=== PATIENT | male | born 1960 | race Caucasian/White ===

== ENCOUNTER 2017-01-01 22:49 | Emergency (ER) | payer BC ==
[~2017-01-01] VITALS: Ht 170.2 cm; Wt 101.4 kg
[~2017-01-01 22:49] MED LIST: ALPR-411 PO; ASPI81TA21 PO; ATOR-26 PO; CYCL10TA6 PO; Cranberry PO; FINA5TAB4 PO; FISHOIL PO; Flax Seed Oil PO; KPP/750 PO; LSN/10125 PO; MISC1CAP60 PO; MULTTAB58 PO
[2017-01-01 22:52] VITALS: TEMP 36.9; Ht 170.2 cm; Wt 101.4 kg
--- NOTE | 2017-01-01 23:16 | EMERGENCY ROOM VISIT NOTE ---
History Report prepared by Kathrin: Devaughn Pagan Under the Supervision of: Dr. Karin Awad D.O. First contact with patient: 22:56 Chief Complaint: CONSTIPATION Stated Complaint: EXTREME CONSTIPATION History of Present Illness The patient is a 56 year old male who presents to the Emergency Room with complaints of persistent constipation that the patient first noticed this morning, several hours prior to arrival. The patient states that when he woke up this morning he was not able to urinate as he normally would. He was not able to successfully void, so he sat down to attempt to produce a bowel movement. He cannot remember the last normal bowel movement he had, but did note moving 4-5 "pellets" on Monday, three days ago. Trying to have a bowel movement caused increased his abdominal pain. He is currently experiencing constant abdominal pain that is worsened with sitting down, and improved by laying on his side. The patient did try MiraLAX and a Enema earlier today without relief. He denies having any history of constipation, and notes that he normally has a bowel movement every other day. The patient claims that he has not been able to urinate successfully throughout the day and can feel a pressure over his bladder. He has been diagnosed with diverticulitis in the past and had a colonoscopy performed. No recent change in activity or diet. No change in medications. 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 A total of 10 systems reviewed and were otherwise negative. Past Medical & Surgical Medical Problems: (1) Diverticulosis (2) Hemorrhoid (3) Hypertension (4) Seizure disorder Surgical Problems: (1) History of hip surgery Family History No significant family history Social History Smoking Status: Never Smoker Alcohol Use: none Marital Status: Housing Status: lives with family Occupation Status: employed Current/Historical Medications Scheduled Alprazolam (Xanax), 0.5-1 TABS PO Q6HR PRN Aspirin Enteric Coated (Ecotrin Or Generic), 162 MG PO DAILY Atorvastatin (Lipitor), 80 MG PO DAILY Cranberry (Vaccinium Macrocarp (Cranberry), 1 CAP PO DAILY Cyclobenzaprine Hcl (Flexeril), 10 MG PO HS PRN Doxazosin Mesylate (Doxazosin Mesylate), 2 MG PO BID Finasteride (Proscar), 5 MG PO DAILY Fish Oil ([place]-3), 1 CAP PO DAILYBD Flaxseed (Linseed) (Flaxseed Oil), 1 CAP PO DAILY Hctz/Lisinopril (Lisinopril/Hctz 10/12.5 Mg), 1 TABLET PO DAILY Levetiracetam (Keppra), 1,500 MG PO BID Misc Natural Products ([place]), 1 CAP PO DAILY Multiple Vitamin (Multivitamin), 1 TABLET PO 2XWK Omeprazole (Prilosec), 20 MG PO DAILY Allergies Coded Allergies: No Known Allergies (Verified , 01/01/17) Physical Exam Vital Signs Date Time Temp Pulse Resp B/P (MAP) Pulse Ox O2 Delivery O2 Flow Rate FiO2 01/02/17 03:02 81 18 101/68 93 01/02/17 01:01 104/69 01/02/17 00:57 82 17 95 01/02/17 00:42 92 95 01/02/17 00:31 121/86 01/02/17 00:27 94 96 01/02/17 00:12 97 98 01/02/17 00:01 130/86 01/01/17 23:57 97 18 96 01/01/17 23:43 138/93 01/01/17 23:42 101 95 Room Air 01/01/17 23:22 110/68 01/01/17 22:52 36.9 108 18 121/77 95 Room Air Physical Exam GENERAL: alert, well appearing, well nourished, no distress, non-toxic LUNGS: Clear to auscultation. Normal chest wall mechanics HEART: no murmurs, S1 normal and S2 normal ABDOMEN: abdomen soft, with minimal diffuse lower abdominal tenderness to palpation, normo-active bowel sounds, no masses, no rebound or guarding. BACK: Back is symmetrical on inspection and there is no deformity, no midline tenderness, no CVA tenderness. SKIN: no rashes and no bruising UPPER EXTREMITIES: upper extremities are grossly normal. LOWER EXTREMITIES: No pitting edema. NEURO EXAM: Normal sensorium Medical Decision & Procedures ER Provider Diagnostic Interpretation: Radiology results have been interpreted by me: CHEST X-RAY: X-ray reveals mild cardiomegaly, no effusion, no wide mediastinum, no infiltrate. ABDOMEN X-RAY: No definite SBO, no free air, scattered stool present throughout. Laboratory Results Test 01/02/17 00:25 Urine Color YELLOW Urine Appearance CLEAR (CLEAR) Urine pH 5.5 (4.5-7.5) Urine Specific [place] 1.010 (1.000-1.030) Urine Protein NEG (NEG) Urine Glucose (UA) NEG (NEG) Urine Ketones TRACE (NEG) Urine Occult Blood NEG (NEG) Urine Nitrite NEG (NEG) Urine Bilirubin NEG (NEG) Urine Urobilinogen NEG (NEG) Urine Leukocyte Esterase NEG (NEG) Laboratory results per my review. Medications Administered Medications (Trade) Dose Ordered Sig/Hua Route Start Time Stop Time Status Last Admin Dose Admin Dicyclomine HCl (Bentyl Tab) 20 mg NOW STAT PO 01/01/17 23:47 01/01/17 23:50 DC 01/02/17 00:06 20 MG Ketorolac Tromethamine (Toradol Inj) 60 mg NOW STAT IM 01/01/17 23:47 01/01/17 23:50 DC 01/02/17 00:08 60 MG Miscellaneous Medication (Milk And Molasses Enema) 1 ea NOW STAT UT 01/01/17 23:47 01/01/17 23:50 DC 01/01/17 00:55 1 EA Hydrocortisone (Proctozone Hc 2.5% Crm) 1 appln NOW ONCE EXT 01/02/17 01:15 01/02/17 01:16 DC 01/02/17 02:27 1 APPLN Hydrocortisone Acetate (Anusol Hc Supp) 25 mg NOW STAT UT 01/02/17 01:08 01/02/17 01:10 DC 01/02/17 02:27 25 MG Magnesium Citrate (Citrate Of Magnesia Soln) 296 ml NOW STAT PO 01/02/17 01:54 01/02/17 01:55 DC 01/02/17 03:02 296 ML ED Course 2302: The patient was evaluated in room B9. A complete history and physical exam was performed. 2347: Ordered Molasses, Toradol 60 mg IM, Dicyclomine HCl 20 mg PO. 0002: I reevaluated the patient at this time. He was resting in bed. 0026: Bladder scan performed at pt request. 700ml. Agudelo placed. 1100 ml drained. 0108: Ordered Hydrocortisone Acetate 25 mg UT. 0115: Ordered Hydrocortisone 1 application EXT. 0143: I reevaluated the patient at this time. He feels much better, the abdominal pain has resolved. There is no more tenderness to palpation. I discussed options for his diet moving forwards. The patient is in agreement with the treatment plan. He will be discharged home. 0154: Ordered Magnesium Citrate 296 mL PO. Medical Decision Differential diagnosis: Etiologies such as functional constipation, impaction, obstruction, volvulus, metabolic abnormality, infection, neurologic, as well as others were entertained. With additional discussion, patient admitted to altered diet this week around the holidays. He feels this could be contributing to his constipation. Patient 's pain improved following successful enema. Patient was found to have urinary retention and Agudelo catheter placed and patient felt improved not also. On repeat exam patient's abdomen was soft and nontender and less distended. I do not suspect perforation, GI bleed, mesenteric ischemia, colitis, bowel obstruction, kidney stone, no evidence of UTI without pyelonephritis, doubt vascular etiology, doubt bacteremia/sepsis. Likely constipation and urinary retention with reasons for the patient's pain and discomfort. From recent straining from constipation patient does have hemorrhoids. Discussed with him close follow-up with family doctor, waist apparent constipation, follow-up with urology regarding the urinary retention which is likely due to patient's chronic prostate issues. Patient already on Proscar, and has previously had prostate biopsy. Patient had a last several months notice difficulty emptying his bladder completely. Medication Reconcilliation Current Medication List: was personally reviewed by me Blood Pressure Screening Patient's blood pressure: Normal blood pressure Impression Primary Impression: Constipation Additional Impressions: Urinary retention Hemorrhoid Scribe Attestation The scribe's documentation has been prepared under my direction and personally reviewed by me in its entirety. I confirm that the note above accurately reflects all work, treatment, procedures, and medical decision making performed by me. Departure Information Dispostion Home / Self-Care Referrals Charmaine Matt M.D. (PCP) Patient Instructions My [facility] Additional Instructions Please take stool softeners daily and drink more water. Please make sure you are eating foods rich in fiber daily. Please drink half of the bottle of mag citrate. If you do not have any results in 4-5 hours, please drink the other half. Please follow-up with your family doctor regarding the constipation and have them recheck your hemorrhoids. Please call urology and follow-up regarding your difficulty urinating. If you have any recurrent abdominal pain, develop fevers, vomiting, notice blood in the catheter, are unable to have a bowel movement, or you have any other new or concerning symptoms, please return to the emergency room. Problem Qualifiers Primary Impression: Constipation Constipation type: unspecified constipation type Qualified Codes: K59.00 - Constipation, unspecified Additional Impressions: Hemorrhoid Hemorrhoid type: unspecified Qualified Codes: K64.9 - Unspecified hemorrhoids
[2017-01-01] MEDS ORDERED: OMEG10007 PO (23:29)
[2017-01-01] MEDS ORDERED: CRD2 PO (23:30)
[2017-01-01] MEDS ORDERED: OMEP20CA9 PO (23:30)
[2017-01-01] MEDS ORDERED: CRAN1CAP6 PO (23:33)
[2017-01-01] MEDS ORDERED: FLAX12003 PO (23:33)
[2017-01-01] MEDS ORDERED: DICYCLOMINE HCL 20 MG TAB PO STA (23:47)
[2017-01-01] MEDS ORDERED: KETOROLAC TROMETHAMINE 60 MG/2 ML VIAL IM STA (23:47)
[2017-01-01] MEDS ORDERED: MILK AND MOLASSES ENEMA PR STA (23:47)
[2017-01-02] MEDS ORDERED: DICYCLOMINE HCL 10 MG CAP ONE (00:04)
[2017-01-02 00:44] LABS: URINE APPEARANCE CLEAR (CLEAR); URINE BILIRUBIN NEG (NEG); URINE COLOR YELLOW; URINE NITRITE NEG (NEG); URINE PH 5.5 (4.5-7.5); UROBILINOGEN NEG (NEG)
[2017-01-02 01:00] LABS: MANUAL MICROSCOPIC REQUIRED? NO; REVIEW REQ? NO
[2017-01-02] MEDS ORDERED: HYDROCORTISONE ACETATE 25 MG SUPP PR STA (01:08)
[2017-01-02] MEDS ORDERED: HYDROCORTISONE HC 2.5% CRM 30GM TUBE EXT ONE (01:15)
[2017-01-02] MEDS ORDERED: MAGNESIUM CITRATE 296 ML/BTL PO STA (01:54)
[2017-01-02 03:02] VITALS: BP 101/68; PULSE 81; O2SAT 93
--- NOTE | 2017-01-02 07:05 | DIAGNOSTIC IMAGING REPORT ---
PA CHEST WITH ABDOMINAL SERIES CLINICAL HISTORY: Constipation. Lower abdominal pain. FINDINGS: A PA chest radiograph is compared to study dated 03/11/2007. The heart is top normal for projection. The mediastinal contour is within normal limits. The lungs and pleural spaces are clear. No pneumothorax is seen. The bony thorax is grossly intact. Supine and erect abdominal radiographs are correlated with abdominal ultrasound dated 09/27/2007. The examination is degraded by large body habitus. There is a nonobstructed abdominal bowel gas pattern. Mild to moderate colonic fecal retention is observed. No evidence of intraperitoneal free air is seen. There are no abnormal abdominal calcifications. Phleboliths are noted in the pelvis. There is a left hip arthroplasty. The lumbosacral spine and bony pelvis appear intact. IMPRESSION: 1. No active disease in the chest. 2. Nonobstructed abdominal bowel gas pattern. Electronically signed by: Eulalio Gustafson M.D. 01/02/2017 7:04 AM Dictated Date/Time: 01/02/2017 7:02 AM
== END 2017-01-02 03:05 | disposition home or self-care (01) ==
LOC: C.EDB 22:50
DX: K59.00 Constipation, unspecified (principal); R33.9 Retention of urine, unspecified; K64.9 Unspecified hemorrhoids; G40.909 Epilepsy, unspecified, not intractable, without status epilepticus; Z98.890 Other specified postprocedural states; Z79.82 Long term (current) use of aspirin; Z79.899 Other long term (current) drug therapy

== ENCOUNTER → 2017-03-14 | Outpatient (CLI) | payer OTHER ==
[~2017-03-14] MED LIST changes: +CRAN1CAP6 PO; +CRD2 PO; -Cranberry PO; -FISHOIL PO; +FLAX12003 PO; -Flax Seed Oil PO; +OMEG10007 PO; +OMEP20CA9 PO
--- NOTE | 2017-03-14 14:34 | DIAGNOSTIC IMAGING REPORT ---
EXAMINATION: RENAL ULTRASOUND CLINICAL HISTORY: R31.0 Gross [id number] COMPARISON STUDY: None FINDINGS: The right kidney measures 10.0 cm. The left kidney measures 10.3 cm. There is no evidence of hydronephrosis. There is an 8 mm upper pole right renal cyst No bladder abnormalities are visualized. Bilateral ureteral jets were visualized. The prostate is enlarged, measuring 41 mm transversely. IMPRESSION : 1. 8 mm right renal cortical cyst 2. No solid renal masses identified 3. Enlarged prostate Electronically signed by: Suresh Quevedo M.D. 03/14/2017 2:33 PM Dictated Date/Time: 03/14/2017 2:31 PM
== END | disposition home or self-care (01) ==
LOC: C.ULTR 13:36
PROVIDERS: ATTEND Urology
DX: R31.0 Gross hematuria (principal); N28.1 Cyst of kidney, acquired; N40.0 Benign prostatic hyperplasia without lower urinary tract symptoms

== ENCOUNTER 2020-02-26 18:12 | Inpatient (IN) ==
[2020-02-26] MEDS ORDERED: PANTOprazole 80 MG in DEXTROSE 5% 100 ML IV ONE (18:29)
[2020-02-26] MEDS ORDERED: SODIUM CHLORIDE 0.9% 250 ML IV PRN (18:29)
[2020-02-26] MEDS ORDERED: PANTOprazole 40 MG in DEXTROSE 5% 100 ML IV SCH (18:30)
[2020-02-26] MEDS ORDERED: SODIUM CHLORIDE 0.9% 1000ML 1,000 ML IV SCH (18:30)
[2020-02-26 18:56] LABS: Basophils # (auto) 0.04 K/uL (0-0.2); Basophils % (auto) 0.6 %; Eosinophils # (auto) 0.08 K/uL (0-0.5); Eosinophils % (auto) 1.2 %; Hematocrit (blood only) 35.9 % (42-52); Hemoglobin 12.3 g/dL (14.0-18.0); Immature Granulocytes # (auto) 0.06 K/uL (0.00-0.02); Immature Granulocytes % (auto) 0.9 %; Lymphocytes # (auto) 1.79 K/uL (1.2-3.4); Lymphocytes % (auto) 27.6 %; Mean Corpuscular Hemoglobin 32.6 pg (25-34); Mean Corpuscular Hgb Conc 34.3 g/dL (32-36); Mean Corpuscular Volume 95.2 fL (80-100); Monocytes # (auto) 0.44 K/uL (0.11-0.59); Monocytes % (auto) 6.8 %; Neutrophils # (auto) 4.08 K/uL (1.4-6.5); Neutrophils % (auto) 62.9 %; Platelet Count 122 K/uL (130-400); RDW Coefficient of Variation 13.1 % (11.5-14.5); RDW Standard Deviation 45.3 fL (36.4-46.3); Red Blood Count 3.77 M/uL (4.7-6.1); White Blood Count 6.49 K/uL (4.8-10.8)
[2020-02-26 19:18] LABS: Albumin Level 3.9 gm/dl (3.4-5.0); BUN Creatinine Ratio 17.4 (10-20); Blood Urea Nitrogen 19 mg/dl (7-18); Carbon Dioxide 28 mmol/L (21-32); Chloride 104 mmol/L (98-107); Creatinine Clr Calc Pharmacy 79.9 ml/min; Est GFR (African American) 84.1; Est GFR (Non-African American) 72.6; Glucose 93 mg/dl (70-99); Sodium 137 mmol/L (136-145)
[2020-02-26 19:24] LABS: Alanine Aminotransferase 39 U/L (12-78); Albumin Globulin Ratio 1.1 (0.9-2); Alkaline Phosphatase 63 U/L (45-117); Bilirubin,Total 0.4 mg/dl (0.2-1); Globulin 3.5 gm/dl (2.5-4.0); Total Protein 7.4 gm/dl (6.4-8.2); Troponin I < 0.015 ng/ml (0-0.045)
[2020-02-26 20:19] LABS: Potassium 3.9 mmol/L (3.5-5.1)
[2020-02-26 20:21] LABS: Partial Thromboplastin Ratio 0.8; Partial Thromboplastin Time 22.6 Seconds (21.0-31.0); Prothrombin Time 10.6 Seconds (9.0-12.0)
[2020-02-26] MEDS ORDERED: MULTI-VITAMIN INFUSION 10 ML, THIAMINE HCL 100 MG, FOLIC ACID 1 MG in SODIUM CHLORIDE 0... IV ONE (22:30)
[2020-02-26] MEDS ORDERED: METOPROLOL TARTRATE 1 MG/ML VIAL IV PRN (22:30)
[2020-02-26] MEDS ORDERED: NITROGLYCERIN SL 0.4 MG/TAB TAB SL PRN (22:30)
[2020-02-26] MEDS ORDERED: ONDANSETRON INJ 2 MG/ML 2 ML VIAL IV PRN (22:30)
--- NOTE | 2020-02-26 22:44 | Emergency Department Note ---
Impression & Plan UGIB (upper gastrointestinal bleed) ED Provider Note NAME: KATY NAYAK AGE: 59 SEX: M ARRIVES VIA: Walk-In INFORMANT: Patient, ED PROVIDER(S): Julita Coello MD CHIEF COMPLAINT: Black stools, dizzy PLAN: Disposition: Inpatient Condition: Fair Referral: Hospitalist MEDICAL DECISION MAKING: This patient was evaluated and appeared to be in no distress. IV access was obtained and laboratory work was drawn. An order for cardiac monitoring was placed and the patient is noted to be in a normal sinus rhythm at 96 bpm. Patient's hemoglobin is 12.3 which is down from 15 as an outpatient ([facility]) 1 year ago. Rectal exam reveals guaiac positive melanotic stool. Patient was hydrated with normal saline solution. He was typed and crossed for 2 units PRBCs. He was started on a Protonix drip. I did explain my findings to the patient. He is agreeable with the plan for admission and further management. Hospitalist service was consulted. Triage Nursing notes reviewed. Prior medical records reviewed outpatient [facility] record Vital Signs: reviewed and remarkable for mild tachycardia Differential diagnosis: Diverticulosis, AVM, coagulopathy, colitis, inflammatory bowel disease, malignancy, Romelia-Atkinson tear, esophagitis, peptic ulcer disease, variceal bleed, gastritis, epistaxis, fissure, hemorrhoids, as well as other pathologies. ER treatment provided: IV Protonix IV fluids Diagnostics interpreted by me: ECG: Normal sinus rhythm at 97 bpm left axis deviation, anterior lateral T wave inversions, QTC of 449. No PVC, no PAC. Nonspecific ST abnormality in the anterior lateral leads Cardiac Monitoring: An order for cardiac monitoring was placed and the patient is noted to be in a normal sinus rhythm 96 bpm Laboratory studies: Hemoglobin of 12.3, down from 15 as an outpatient 1 year ago Consultation(s): Hospitalist HPI: 59/M arrives for evaluation of dark stools and dizziness. Patient was seen in the outpatient office by the primary care provider and sent in for further evaluation. Patient states he does take 2 baby aspirin a day and last week was placed on a course of prednisone for a presumed peripheral nerve issue. He also admits to drinking several alcoholic beverages daily. Approximately 5 to 7 days ago he noticed dark stools and some nausea although he denies any overt abdominal pain. Patient denies any vomiting, fevers, chills, cough. He states he did have a rectal exam that was positive for blood in the office prior to arrival. ROS: See above HPI for pertinent positives & negatives. A total of 10 systems reviewed and were otherwise negative. PAST MEDICAL HISTORY:See Below PAST SURGICAL HISTORY:See Below FAMILY HISTORY:See Below SOCIAL HISTORY:See Below HOME MEDICATIONS:See Below ALLERGIES:See Below PHYSICAL EXAMINATION: Vital signs reviewed. General: Generally well-appearing 59 yo male, in no significant distress. HEENT: Pale conjunctiva, PERRLA, neck supple. Moist mucous membranes Cardiovascular: Regular rate and rhythm, no extra sounds. Pulmonary: Clear to auscultation bilaterally, normal work of breathing. Abdomen: Soft, nontender, nondistended, positive bowel sounds. Musculoskeletal: Atraumatic, no peripheral edema. Neurologic: Patient awake alert and oriented x 3 Rectal: Normal external mucosa, guaiac positive melanotic stool. Skin: Warm, dry, no rash Julita Coello MD Past Med/Surg History Medical History (Updated 02/27/20 @ 22:45 by Julita Coello MD) Acute blood loss anemia Diverticulosis HLD (hyperlipidemia) Hypertension Seizure disorder Social History Smoking Status: Former smoker Second Hand Exposure: No; Do You Dip or Chew Tobacco: No (not currently); Tobacco Cessation Education Requested by Patient: No Hx Alcohol Use: Yes Alcohol type: beer and hard liquor Hx Substance Use: No Preferred Language: Azeri Communication Ability: Effective Park Maintainer Required: No Beliefs That Will Affect Care: None Current Living Situation: Family Other Information That Helps Us Care for You: No Feels Safe at Home: Yes Safety Concerns: Feels Safe At This Time Assistive Devices: None Allergies Allergies Allergy/AdvReac Type Severity Reaction Status Date / Time No Known Allergies Allergy Unknown Verified 02/26/20 21:41 Home Meds Home Medications Medication Instructions Recorded Confirmed alprazolam 0.5 - 1 mg PO Q6H PRN 02/26/20 02/26/20 aspirin [Aspir-Low] 162 mg PO DAILY 02/26/20 02/26/20 atorvastatin 80 mg PO QPM 02/26/20 02/26/20 cranberry extract 0 mg PO DAILY 02/26/20 02/26/20 cyclobenzaprine 10 mg PO HS PRN 02/26/20 02/26/20 finasteride 5 mg PO DAILY 02/26/20 02/26/20 flaxseed oil 0 mg PO DAILY 02/26/20 02/26/20 levetiracetam 1,500 mg PO BID 02/26/20 02/26/20 lisinopril-hydrochlorothiazide 1 tab PO DAILY 02/26/20 02/26/20 lycopene 10 mg PO DAILY 02/26/20 02/26/20 omega-3 fatty acids [Fish Oil] 1,000 mg PO DAILY 02/26/20 02/26/20 omeprazole 20 mg PO DAILY 02/26/20 02/26/20 saw palmetto 0 mg PO DAILY 02/26/20 02/26/20 sildenafil 100 mg PO DAILY PRN 02/26/20 02/26/20 Results & Data (ED) Vital Signs Vital Signs - 24 hr 02/26/20 20:30 02/26/20 21:00 Pulse Rate 99 H 101 H Pulse Rate from SpO2 Sensor 100 H 102 H Respiratory Rate 18 18 Blood Pressure 116/81 136/92 Blood Pressure Mean 92 106 Pulse Oximetry 96 98 Oxygen Delivery Method Room Air Room Air Laboratory Data Attestation: I reviewed the patient's lab results. Result diagrams: 02/27/20 17:08 02/27/20 05:27 Lab Results 02/26/20 02/26/20 02/26/20 Range/Units 18:40 18:40 18:40 WBC 6.49 (4.8-10.8) K/uL RBC 3.77 L (4.7-6.1) M/uL Hgb 12.3 L (14.0-18.0) g/dL Hct 35.9 L (42-52) % MCV 95.2 (80-100) fL MCH 32.6 (25-34) pg MCHC 34.3 (32-36) g/dL RDW Std Deviation 45.3 (36.4-46.3) fL RDW Coeff of Fanta 13.1 (11.5-14.5) % Plt Count 122 L (130-400) K/uL MPV 11.0 H (7.4-10.4) fL Immature Gran % (Auto) 0.9 % Neut % (Auto) 62.9 % Lymph % (Auto) 27.6 % [place] % (Auto) 6.8 % Eos % (Auto) 1.2 % Baso % (Auto) 0.6 % Neut # (Auto) 4.08 (1.4-6.5) K/uL Lymph # (Auto) 1.79 (1.2-3.4) K/uL [place] # (Auto) 0.44 (0.11-0.59) K/uL Eos # (Auto) 0.08 (0-0.5) K/uL Baso # (Auto) 0.04 (0-0.2) K/uL Immature Gran # (Auto) 0.06 H (0.00-0.02) K/uL PT INR APTT PTT Ratio Sodium 137 (136-145) mmol/L Potassium (3.5-5.1) mmol/L Chloride 104 (98-107) mmol/L Carbon Dioxide 28 (21-32) mmol/L Anion Gap 5.0 (3-11) BUN 19 H (7-18) mg/dl Creatinine 1.10 (0.6-1.4) mg/dl Est Cr Clr Drug Dosing 79.9 ml/min Est GFR ( Amer) 84.1 Est GFR (Non-Af Amer) 72.6 BUN/Creatinine Ratio 17.4 (10-20) Glucose 93 (70-99) mg/dl Calcium 9.0 (8.5-10.1) mg/dl Total Bilirubin 0.4 (0.2-1) mg/dl AST (15-37) U/L ALT 39 (12-78) U/L Alkaline Phosphatase 63 (45-117) U/L Troponin I < 0.015 (0-0.045) ng/ml Total Protein 7.4 (6.4-8.2) gm/dl Albumin 3.9 (3.4-5.0) gm/dl Globulin 3.5 (2.5-4.0) gm/dl Albumin/Globulin Ratio 1.1 (0.9-2) Blood Type Cancelled Antibody Screen Cancelled Crossmatch See Detail 02/26/20 02/26/20 02/26/20 Range/Units 18:40 19:56 19:56 WBC (4.8-10.8) K/uL RBC (4.7-6.1) M/uL Hgb (14.0-18.0) g/dL Hct (42-52) % MCV (80-100) fL MCH (25-34) pg MCHC (32-36) g/dL RDW Std Deviation (36.4-46.3) fL RDW Coeff of Fanta (11.5-14.5) % Plt Count (130-400) K/uL MPV (7.4-10.4) fL Immature Gran % (Auto) % Neut % (Auto) % Lymph % (Auto) % [place] % (Auto) % Eos % (Auto) % Baso % (Auto) % Neut # (Auto) (1.4-6.5) K/uL Lymph # (Auto) (1.2-3.4) K/uL [place] # (Auto) (0.11-0.59) K/uL Eos # (Auto) (0-0.5) K/uL Baso # (Auto) (0-0.2) K/uL Immature Gran # (Auto) (0.00-0.02) K/uL PT Cancelled INR Cancelled APTT Cancelled PTT Ratio Cancelled Sodium (136-145) mmol/L Potassium 3.9 (3.5-5.1) mmol/L Chloride (98-107) mmol/L Carbon Dioxide (21-32) mmol/L Anion Gap (3-11) BUN (7-18) mg/dl Creatinine (0.6-1.4) mg/dl Est Cr Clr Drug Dosing ml/min Est GFR ( Amer) Est GFR (Non-Af Amer) BUN/Creatinine Ratio (10-20) Glucose (70-99) mg/dl Calcium (8.5-10.1) mg/dl Total Bilirubin (0.2-1) mg/dl AST 20 (15-37) U/L ALT (12-78) U/L Alkaline Phosphatase (45-117) U/L Troponin I (0-0.045) ng/ml Total Protein (6.4-8.2) gm/dl Albumin (3.4-5.0) gm/dl Globulin (2.5-4.0) gm/dl Albumin/Globulin Ratio (0.9-2) Blood Type A Positive Antibody Screen NEGATIVE Crossmatch 02/26/20 Range/Units 19:56 WBC (4.8-10.8) K/uL RBC (4.7-6.1) M/uL Hgb (14.0-18.0) g/dL Hct (42-52) % MCV (80-100) fL MCH (25-34) pg MCHC (32-36) g/dL RDW Std Deviation (36.4-46.3) fL RDW Coeff of Fanta (11.5-14.5) % Plt Count (130-400) K/uL MPV (7.4-10.4) fL Immature Gran % (Auto) % Neut % (Auto) % Lymph % (Auto) % [place] % (Auto) % Eos % (Auto) % Baso % (Auto) % Neut # (Auto) (1.4-6.5) K/uL Lymph # (Auto) (1.2-3.4) K/uL [place] # (Auto) (0.11-0.59) K/uL Eos # (Auto) (0-0.5) K/uL Baso # (Auto) (0-0.2) K/uL Immature Gran # (Auto) (0.00-0.02) K/uL PT 10.6 INR 1.0 APTT 22.6 PTT Ratio 0.8 Sodium (136-145) mmol/L Potassium (3.5-5.1) mmol/L Chloride (98-107) mmol/L Carbon Dioxide (21-32) mmol/L Anion Gap (3-11) BUN (7-18) mg/dl Creatinine (0.6-1.4) mg/dl Est Cr Clr Drug Dosing ml/min Est GFR ( Amer) Est GFR (Non-Af Amer) BUN/Creatinine Ratio (10-20) Glucose (70-99) mg/dl Calcium (8.5-10.1) mg/dl Total Bilirubin (0.2-1) mg/dl AST (15-37) U/L ALT (12-78) U/L Alkaline Phosphatase (45-117) U/L Troponin I (0-0.045) ng/ml Total Protein (6.4-8.2) gm/dl Albumin (3.4-5.0) gm/dl Globulin (2.5-4.0) gm/dl Albumin/Globulin Ratio (0.9-2) Blood Type Antibody Screen Crossmatch Administered Medications Atorvastatin Calcium (Atorvastatin 40 Mg Tab) 80 mg PO QPM A[facility] Stop: 03/28/20 20:59 Last Admin: 02/27/20 21:12 Dose: 80 mg Documented by: [id number] Finasteride (Finasteride 5 Mg Tab) 5 mg PO DAILY A[facility] Stop: 03/28/20 08:59 Last Admin: 02/27/20 08:15 Dose: 5 mg Documented by: [id number] Thiamine HCl 100 mg/ Syringe 10 mls @ 2 mls/min IV QAM [facility] Stop: 03/28/20 08:59 Last Admin: 02/27/20 08:15 Dose: 2 mls/min Documented by: [id number] Lorazepam (Ativan) 0.5 mg in 1 mls @ 1 mls/min IV Q4H PRN PRN Reason: Anxiety/Agitation Stop: 03/27/20 22:29 Last Admin: 02/27/20 01:12 Dose: 1 mls/min Documented by: [id number] Levetiracetam 1,500 mg/ Sodium (Chloride) 115 mls @ 440 mls/hr IV BID DAELE Stop: 03/27/20 22:29 Last Infusion: 02/27/20 21:38 Dose: 0 mls/hr Documented by: [id number] Admin: 02/27/20 21:12 Dose: 440 mls/hr Documented by: [id number] Infusion: 02/27/20 08:34 Dose: 0 mls/hr Documented by: [id number] Admin: 02/27/20 08:14 Dose: 440 mls/hr Documented by: [id number] Infusion: 02/27/20 00:55 Dose: 0 mls/hr Documented by: [id number] Admin: 02/27/20 00:31 Dose: 440 mls/hr Documented by: [id number] Discontinued Medications Alprazolam (Alprazolam 0.5 Mg Tablet) 0.5 - 1 mg PO Q6H PRN PRN Reason: Anxiety Stop: 03/28/20 02:11 Last Admin: 02/27/20 04:19 Dose: 0.5 mg Documented by: [id number] Fentanyl Citrate (Fentanyl Citrate 100 Mcg/2 Ml Vial) Confirm Administered Dose 100 mcg .ROUTE .[facility] ONE Stop: 02/27/20 10:25 Last Admin: 02/27/20 12:56 Dose: Not Given Documented by: [id number] Gabapentin (Gabapentin 600 Mg Tab) 1,200 mg PO NOW ONE Stop: 02/27/20 05:36 Last Admin: 02/27/20 06:53 Dose: 1,200 mg Documented by: [id number] Gabapentin (Gabapentin 600 Mg Tab) 600 mg PO Q6H [facility] Stop: 02/27/20 18:01 Last Admin: 02/27/20 12:50 Dose: 600 mg Documented by: [id number] Lisinopril/HCTZ (Lisinopril/Hctz 10/12.5mg Tab) 1 tab PO DAILY A[facility] Stop: 03/28/20 08:59 Last Admin: 02/27/20 08:15 Dose: 1 tab Documented by: [id number] Sodium Chloride (Nss 1000ml) 1,000 mls @ 100 mls/hr IV .Q10H [facility] Stop: 02/27/20 04:29 Last Infusion: 02/26/20 22:28 Dose: 0 mls/hr Documented by: [id number] Admin: 02/26/20 19:07 Dose: 100 mls/hr Documented by: [id number] Pantoprazole Sodium 80 mg/ (Dextrose) 100 mls @ 400 mls/hr IV NOW ONE Stop: 02/26/20 18:43 Last Infusion: 02/26/20 19:24 Dose: 0 mls/hr Documented by: [id number] Admin: 02/26/20 19:03 Dose: 400 mls/hr Documented by: [id number] Pantoprazole Sodium 40 mg/ (Dextrose) 100 mls @ 20 mls/hr IV Q5H [facility] Stop: 02/26/20 23:29 Last Infusion: 02/26/20 23:35 Dose: 0 mg/hr, 0 mls/hr Documented by: [id number] Admin: 02/26/20 19:24 Dose: 8 mg/hr, 20 mls/hr Documented by: [id number] Dextrose/Sodium Chloride (D5w And Nss) 1,000 mls @ 125 mls/hr IV .Q8H [facility] Stop: 03/28/20 00:59 Last Infusion: 02/27/20 16:49 Dose: 0 mls/hr Documented by: [id number] Admin: 02/27/20 08:13 Dose: 125 mls/hr Documented by: [id number] Infusion: 02/27/20 08:13 Dose: 125 mls/hr Documented by: [id number] Admin: 02/27/20 00:56 Dose: 125 mls/hr Documented by: [id number] Multivitamins 10 ml/ Thiamine HCl 100 mg/ Folic Acid 1 mg/Sodium Chloride 1,01 1.2 mls @ 1,011.2 mls/hr IV .Q1H ONE Stop: 02/26/20 23:29 Last Infusion: 02/27/20 02:05 Dose: 0 mls/hr Documented by: [id number] Admin: 02/27/20 00:59 Dose: 999 mls/hr Documented by: [id number] Folic Acid 1 mg/ Syringe 10 mls @ 5 mls/min IV QAM [facility] Stop: 03/28/20 08:59 Last Admin: 02/27/20 08:14 Dose: 5 mls/min Documented by: [id number] Pantoprazole Sodium 40 mg/ (Dextrose) 100 mls @ 20 mls/hr IV Q5H [facility] Stop: 03/27/20 22:59 Last Infusion: 02/27/20 16:49 Dose: 0 mg/hr, 0 mls/hr Documented by: [id number] Admin: 02/27/20 14:14 Dose: 8 mg/hr, 20 mls/hr Documented by: [id number] Infusion: 02/27/20 14:02 Dose: 8 mg/hr, 20 mls/hr Documented by: [id number] Admin: 02/27/20 09:02 Dose: 8 mg/hr, 20 mls/hr Documented by: [id number] Infusion: 02/27/20 09:02 Dose: 8 mg/hr, 20 mls/hr Documented by: [id number] Admin: 02/27/20 04:19 Dose: 8 mg/hr, 20 mls/hr Documented by: [id number] Infusion: 02/27/20 04:19 Dose: 8 mg/hr, 20 mls/hr Documented by: [id number] Admin: 02/26/20 23:33 Dose: 8 mg/hr, 20 mls/hr Documented by: [id number] Calcium Gluconate 1,000 mg/ (Sodium Chloride) 60 mls @ 240 mls/hr IV ONE ONE Stop: 02/27/20 12:14 Last Infusion: 02/27/20 13:10 Dose: 0 mls/hr Documented by: [id number] Admin: 02/27/20 12:50 Dose: 240 mls/hr Documented by: [id number] Lidocaine HCl (Lidocaine Hcl 2% 2 Ml Vial/Amp(20mg/Ml)) Confirm Administered Dose 2 ml INFIL .STK-MED ONE Stop: 02/27/20 10:25 Last Admin: 02/27/20 12:56 Dose: Not Given Documented by: [id number] Polyethylene Glycol/Electrolytes (Lavage Solution 4000ml) 16 dose PO 1330 [facility] Stop: 02/27/20 18:00 Last Admin: 02/27/20 14:09 Dose: 16 dose Documented by: [id number] Propofol (Propofol Iv Emulsion 10 Mg/Ml 20 Ml Vial) Confirm Administered Dose 200 mg IV .STK-MED ONE Stop: 02/27/20 10:25 Last Admin: 02/27/20 12:56 Dose: Not Given Documented by: [id number] Discharge Plan Visit Data Chief Complaint: Dizziness Stated Complaint: DARK STOOL, LIGHT HEADED, DIZZY ED Provider: Julita Coello Discharge Problem: UGIB (upper gastrointestinal bleed) Patient Disposition: Admitted As Inpatient Discharge Instructions Interventions: ED Discharge Assessment Last Done: 02/26/20 21:55
[2020-02-26] MEDS: PANTOprazole 40 MG in DEXTROSE 5% 100 ML IV SCH (23:33)
--- NOTE | 2020-02-27 00:06 | History and Physical Report ---
DATE OF ADMISSION: 02/26/2020 CHIEF COMPLAINT: GI bleed and lightheadedness. HISTORY OF PRESENT ILLNESS: This is a 59-year-old male with past medical history significant for dyslipidemia nontoxic uninodular goiter, hypertension, GERD, BPH, seizure disorder, panic disorder, who lives at home with his . Comes here because he went to PCP because of lightheadedness and also black stools and was advised to come to the ER. 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 Last 2-3 days, he is having black stools. It is not improving and also last couple of days, when he took his dog to walk, he felt mildly short of breath and today he was feeling lightheaded, which prompted him to go to the PCP and his hemoccult was positive and he was advised to come to the ER and in the ER also his Hemoccult was positive. His hemoglobin is 12.3, his hemoglobin was 15.9 in March 2019. The patient was slightly tachycardic when he came in. Currently resting comfortably and hemodynamically stable. The patient says he had some chest discomfort a couple of days ago, but that resolved. Has cough, but he attributes this to his sinuses, postnasal drip. Denies any headache. Once in a while he gets straight lines in his vision and he saw the eye doctor and it was thought to be from migraines. No earache. Currently, no runny nose, no sore throat, no difficulty swallowing. Appetite is okay. No nausea, no vomiting. Mild abdominal discomfort and bloating. Normal bladder movements. Currently, no rash. No recent weight gain or weight loss. ALLERGIES: No known drug allergies. PAST MEDICAL HISTORY: As mentioned above. PAST SURGICAL HISTORY: Colonoscopy with biopsy, last colonoscopy in 2014, EGDs, needle punch biopsy of the prostrate, repair of nasal septum, total hip replacement. MEDICATIONS: The patient is on cyclobenzaprine 10 mg p.o. at bedtime p.r.n., lisinopril/hydrochlorothiazide 10/12.5 mg 1 tablet daily, alprazolam 0.5 mg 1 tablet every 6 hours p.r.n., Keppra 1500 mg p.o. b.i.d., atorvastatin 80 mg p.o. daily, omeprazole 20 mg p.o. daily, Proscar 5 mg p.o. daily, aspirin 81 mg p.o. 2 tablets daily. FAMILY HISTORY: Significant for mother has allergies, glaucoma, hypertension, migraine; father has CABG. SOCIAL HISTORY: . Former smoker, quit in 1976. Alcohol, currently drinking 2 beers every day almost 6 days a week for last 6 months. No drug use. REVIEW OF SYSTEMS: As per HPI. Rest of the review of systems negative. PHYSICAL EXAMINATION: GENERAL: The patient is of moderate build, not in acute distress. VITAL SIGNS: Temperature 36.5, pulse 99, respiratory rate 18, blood pressure 116/81, oxygen 96% on room air. HEENT: No pallor. Pupils equal, round, and reactive to light. Oral mucosa moist. NECK: No neck masses seen. CARDIOVASCULAR: S1, S2 heard. Regular rate and rhythm. No murmur, no gallop. RESPIRATORY SYSTEM: Normal AP diameter. No accessory muscle use. No wheezing, no crackles. ABDOMEN: Soft, bowel sounds present. Mild abdominal discomfort. No guarding, no rigidity, no distention. CENTRAL NERVOUS SYSTEM: Cranial nerves II-XII are grossly intact. Nonfocal. EXTREMITIES: Mild pedal edema present, no erythema seen. LABORATORY DATA: WBC 6.4, hemoglobin 12.3, hematocrit 35.9, platelets 122. PT 10.6, INR 1, APTT 22.6. Sodium 137, potassium 3.9, chloride 104, bicarbonate 28, BUN 19, creatinine 1.1, serum glucose 93, calcium 9, total bilirubin 0.4, AST 20, ALT 39, alkaline phosphatase 63. Troponin I less than 0.015. EKG: Normal sinus rhythm with a rate of 97, some T-wave inversion in the anterior leads. ASSESSMENT AND PLAN: This is a 59-year-old male who comes in with gastrointestinal bleed. 1. Gastrointestinal bleed: Having black stools for the last 2-3 days. Hemoglobin was 15.9 in March 2019, currently 12.3. As per the patient, he was lightheaded at home and short of breath on exertion. His Hemoccult is positive. Started on Protonix drip in the ER. We will continue Protonix drip. We will keep him n.p.o., IV fluids. GI consult in the a.m. We will hold his aspirin. Monitor in the tele floor. Hemoglobin and hematocrit q. 6 hours. Blood consult obtained. 2. Alcoholism: The patient drinks 2 beers a day regularly almost every day since the last 6 months, sometimes 2 beers a day and sometimes elsa. He says he does not get withdrawal symptoms if he does not stop drinking. His LFTs are okay. Could be contributing to his GI bleed. Await EGD. We will give him banana bag and place on IV thiamine and folic acid. Needs counseling and also we will place on IV Ativan p.r.n.and gabapentin withdrawal protocol and closely monitor for withdrawals. 3. EKG changes: Some T-wave inversions in the anterior leads. They were prior before in 2015 EKG, but they are slightly more pronounced. Will follow repeat EKG and troponins. The patient had chest pain a couple of days ago, but that has resolved now. We will get an echocardiogram. Monitor in the tele floor. 4. History of seizure disorder: Placed him on IV Keppra. 5. Hyperlipidemia: on statin 6. Benign prostatic hypertrophy: Continue Proscar. 7. History of panic disorder: On Ativan p.r.n. The patient is on Xanax at home. 8. Deep venous thrombosis prophylaxis: Sequential compression devices for now. 9. Disposition: Closely monitor in the tele floor. Level 1 full code. Expect to discharge home and follow with family doctor. AMINA
[2020-02-27] MEDS: levETIRAcetam 1,500 MG in 0.9 % SODIUM CHLORIDE 100 ML IV SCH ×3 (00:31→21:12)
[2020-02-27] MEDS: D5W AND NSS 1,000 ML IV SCH ×2 (00:56→08:13)
[2020-02-27] MEDS: LORazepam 0.5 MG/1 ML VIAL IV PRN (01:12)
[2020-02-27] MEDS ORDERED: ALPRAZolam 0.5 MG TABLET PO PRN (02:12)
[2020-02-27] MEDS: PANTOprazole 40 MG in DEXTROSE 5% 100 ML IV SCH ×3 (04:19→14:14)
[2020-02-27] MEDS ORDERED: GABAPENTIN 600 MG TAB PO ONE (05:35)
[2020-02-27] MEDS ORDERED: GABAPENTIN 1200MG ALCOHOL WITHDRAWAL LOAD PO STA (05:35)
[2020-02-27] MEDS ORDERED: LORazepam 3 MG/6 ML VIAL IV PRN (05:35)
[2020-02-27] MEDS ORDERED: LORazepam 2 MG/4 ML VIAL IV PRN (05:35)
[2020-02-27] MEDS ORDERED: ATIVAN IV ALCOHOL WITHDRAWL IV PRN (05:35)
[2020-02-27] MEDS ORDERED: LORazepam 1 MG/2 ML VIAL IV PRN (05:35)
--- NOTE | 2020-02-27 05:38 | Hospitalist Progress Note ---
Date of Service February 27, 2020 Assessment & Plan Admission and Anticipated Discharge Date Admission Date: February 26, 2020 Subjective mild thrombocytopenia. needs followup. will follow labs. Results & Data Results & Data ([facility]) Vital Signs (Past 12 Hours) Vital Signs Temp Pulse Pulse Resp BP BP Pulse Ox 02/27/20 04:04 36.6 C 77 16 110/73 97 02/26/20 23:56 108 H 02/26/20 23:01 36.8 C 114 H 22 116/77 98 02/26/20 21:30 98 H 23 138/89 100 02/26/20 21:00 101 H 18 136/92 98 02/26/20 20:30 99 H 18 116/81 96 02/26/20 19:30 95 H 13 110/85 98 02/26/20 19:24 96 H 16 112/81 99 02/26/20 19:08 99 02/26/20 18:21 36.5 C 99 H 18 116/78 99
[2020-02-27 05:49] LABS: Hematocrit (blood only) 28.7 % (42-52); Hemoglobin 9.8 g/dL (14.0-18.0)
[2020-02-27 06:00] LABS: Hematocrit (blood only) 28.5 % (42-52); Hemoglobin 9.8 g/dL (14.0-18.0); Mean Corpuscular Hemoglobin 32.6 pg (25-34); Mean Corpuscular Hgb Conc 34.4 g/dL (32-36); Mean Corpuscular Volume 94.7 fL (80-100); Mean Platelet Volume 9.2 fL (7.4-10.4); Platelet Count 187 K/uL (130-400); RDW Coefficient of Variation 13.3 % (11.5-14.5); RDW Standard Deviation 46.2 fL (36.4-46.3); Red Blood Count 3.01 M/uL (4.7-6.1); White Blood Count 5.93 K/uL (4.8-10.8)
[2020-02-27 06:08] LABS: Basophils # (auto) 0.03 K/uL (0-0.2); Basophils % (auto) 0.5 %; Eosinophils % (auto) 1.7 %; Immature Granulocytes # (auto) 0.06 K/uL (0.00-0.02); Lymphocytes # (auto) 1.93 K/uL (1.2-3.4); Lymphocytes % (auto) 32.5 %; Monocytes # (auto) 0.72 K/uL (0.11-0.59); Monocytes % (auto) 12.1 %; Neutrophils # (auto) 3.09 K/uL (1.4-6.5); Neutrophils % (auto) 52.2 %; RBC Morphology Unremarkable
[2020-02-27 06:24] LABS: Anion Gap 0 (3-11); BUN Creatinine Ratio 17.7 (10-20); Blood Urea Nitrogen 16 mg/dl (7-18); Calcium 7.2 mg/dl (8.5-10.1); Carbon Dioxide 30 mmol/L (21-32); Chloride 112 mmol/L (98-107); Creatinine Clr Calc Pharmacy 97.7 ml/min; Est GFR (African American) 107.2; Est GFR (Non-African American) 92.5; Glucose 131 mg/dl (70-99); Magnesium 2.4 mg/dl (1.8-2.4); Potassium 3.9 mmol/L (3.5-5.1); Sodium 142 mmol/L (136-145); Troponin I < 0.015 ng/ml (0-0.045)
[2020-02-27] MEDS: THIAMINE HCL 100 MG in SYRINGE 9 ML IV SCH (08:15)
[2020-02-27] MEDS: FINASTERIDE 5 MG TAB PO SCH (08:15)
[2020-02-27] MEDS ORDERED: LISINOPRIL/HCTZ 10/12.5MG TAB PO SCH (09:00)
[2020-02-27] MEDS ORDERED: FOLIC ACID 1 MG in SYRINGE 9.8 ML IV SCH (09:00)
--- NOTE | 2020-02-27 09:40 | Gastrointestinal Consultation ---
Date of Consultation February 27, 2020 Assessment & Plan (1) BRBPR (bright red blood per rectum): Melena and bright red rectal bleeding. Differentials considered include ulcer disease, gastritis, esophagitis, small bowel bleed or diverticular bleeding. Plan for EGD today and likely, dependent on results of EGD, colonoscopy will be tomorrow. For now keep on a PPI drip, NPO and monitor outputs. Further recommendations to follow EGD. Present on Admission?: Yes (2) Melena: Supervising Physician Co-Signing Physician Notes I performed a history and physical examination of the patient today, including specifically on physical exam - soft abdomen. I have discussed the patient's management with the advanced practitioner. Please refer to the nurse practitioner's note for the documented findings and plan of care. EGD today History of Present Illness Reason for Consultation: black stools, heme positive Requesting Physician: Dr. Garner Attending Physician: Leslee Johansen, History of Present Illness Mr. Carlos Tamayo is a 59 yr old male pt of Dr. Yao Perera with a hx of HTN, Hyperlipidemia, Seizure (2007), and obesity. He presented to the ED yesterday because, he had been passing formed, black BMs 1-2/day x 3 days and yesterday began to feel lightheaded. On arrival, Hb 12.9->9.3 today. BUN has remained normal. He passed a large black loose BM once yesterday after arrival, and today passed a black/red BM. He has mild, diffuse abdominal discomfort, "gassiness," but this has been present for years w/o any recent worsening. He does have mild epigastric "indigestion," but denies any significant abdominal pain. Admits to drinking 2 beers/day. Takes 2 81mg ASA/day, about one dose of naproxen/week and just finished a brief steroid taper for cubital tunnel syndrome. No recent reflux symptoms. He has experienced rectal bleeding iin 2014 and colonoscopy at that time with diverticulosis. That was also his most recent colonoscopy. He underwent EGD for dysphagia by Dr. Sales in 2017 with grade III esophagitis. Allergies Allergy/AdvReac Type Severity Reaction Status Date / Time No Known Allergies Allergy Unknown Verified 02/26/20 21:41 Home Medications Medication Instructions Recorded Confirmed Type alprazolam 0.5 - 1 mg PO Q6H PRN 02/26/20 02/26/20 History aspirin [Aspir-Low] 162 mg PO DAILY 02/26/20 02/26/20 History atorvastatin 80 mg PO QPM 02/26/20 02/26/20 History cranberry extract 0 mg PO DAILY 02/26/20 02/26/20 History cyclobenzaprine 10 mg PO HS PRN 02/26/20 02/26/20 History finasteride 5 mg PO DAILY 02/26/20 02/26/20 History flaxseed oil 0 mg PO DAILY 02/26/20 02/26/20 History levetiracetam 1,500 mg PO BID 02/26/20 02/26/20 History lisinopril-hydrochlorothiazide 1 tab PO DAILY 02/26/20 02/26/20 History lycopene 10 mg PO DAILY 02/26/20 02/26/20 History omega-3 fatty acids [Fish Oil] 1,000 mg PO DAILY 02/26/20 02/26/20 History omeprazole 20 mg PO DAILY 02/26/20 02/26/20 History saw palmetto 0 mg PO DAILY 02/26/20 02/26/20 History sildenafil 100 mg PO DAILY PRN 02/26/20 02/26/20 History Patient History Medical History (Updated 02/27/20 @ 09:58 by ANIA Pérez) HLD (hyperlipidemia) Social History Smoking Status: Former smoker Second Hand Exposure: No; Do You Dip or Chew Tobacco: No (not currently); Tobacco Cessation Education Requested by Patient: No Hx Alcohol Use: Yes Alcohol type: beer and hard liquor Hx Substance Use: No Preferred Language: Danish Communication Ability: Effective Data Mining Analyst Required: No Beliefs That Will Affect Care: None Current Living Situation: Family Other Information That Helps Us Care for You: No Feels Safe at Home: Yes Safety Concerns: Feels Safe At This Time Assistive Devices: None Review of Systems Review of Systems: ROS: Gen: + lightheaded; No fevers or weight loss Eyes: No eye redness, or pain, no recent vision changes Resp: No SOB, no cough Cardio: No palpitations/irregular beats, no chest pain GI: No abdominal pain, no nausea/vomiting : Denies pain on urination Skin: No jaundice, itching or new rashes Physical Exam Constitutional: WD/WN, vitals as above + obese Eyes: PERRL, conjunctivae normal, anicteric sclerae ENMT: external ear and nose normal, oropharynx normal Neck: trachea midline, no thyromegaly Respiratory: normal respiratory effort, lungs clear to auscultation Cardiovascular: RRR, no murmur, no edema Gastrointestinal (Abdomen): normal bowel sounds, soft, nontender, no hepatosplenomegaly Musculoskeletal: no cyanosis or clubbing, extremities motor strength 5/5 Skin: no rashes, warm and dry Neurologic: PERRL, EOMI, accommodation nl, no face palsy, no dysarthria Psychiatric: A+Ox3, euthymic affect Lymphatic: no cervical or axillary lymphadenopathy Results & Data ([facility]) Vital Signs (Past 12 Hours) Vital Signs Temp Pulse Pulse Resp BP Pulse Ox 02/27/20 07:53 36.5 C 78 18 112/72 96 02/27/20 04:04 36.6 C 77 16 110/73 97 02/26/20 23:56 108 H 02/26/20 23:01 36.8 C 114 H 22 116/77 98 Laboratory Results WBC 5.9, Hb 9.8, Hct 28.5, Platlets 187, Na 142, K 3.9, BUN 16, Cr 0.9, glucose 131
[2020-02-27] MEDS ORDERED: ATROPINE SULFATE 0.1 MG/ML 10ML SYR IV PRN (09:46)
[2020-02-27] MEDS ORDERED: ePHEDrine sulfate 50 MG/ML AMP IV PRN (09:46)
--- NOTE | 2020-02-27 09:46 | Anesthesiology Consultation ---
Date of Service February 27, 2020 Assessment & Plan Chart Review Chart Review: Acceptable Risk for Surgery and Patient NOT seen in Pre Admission Testing Consults Requested none ASA ASA4 Proposed Anesthesia Anesthesia Type: MAC Risk / Benefits Reviewed With: PT / POA / Parent / Guardian, Accepts Plan and Informed Consent Obtained Additional Comments: covid test negative History Surgery Operation Date: 02/27/20 18:00 Proposed Procedures p Esophagogastroduodenoscopy Dr Verma - Angela Verma MD Height/Weight Height: 5 ft 7 in Weight: 98.1 kg Allergies Allergy/AdvReac Type Severity Reaction Status Date / Time No Known Allergies Allergy Unknown Verified 02/26/20 21:41 Medications Home Medications Medication Instructions Recorded Confirmed Last Taken alprazolam 0.5 - 1 mg PO Q6H PRN 02/26/20 02/26/20 Unknown aspirin [Aspir-Low] 162 mg PO DAILY 02/26/20 02/26/20 Unknown atorvastatin 80 mg PO QPM 02/26/20 02/26/20 Unknown cranberry extract 0 mg PO DAILY 02/26/20 02/26/20 Unknown cyclobenzaprine 10 mg PO HS PRN 02/26/20 02/26/20 Unknown finasteride 5 mg PO DAILY 02/26/20 02/26/20 Unknown flaxseed oil 0 mg PO DAILY 02/26/20 02/26/20 Unknown levetiracetam 1,500 mg PO BID 02/26/20 02/26/20 Unknown lisinopril-hydrochlorothiazide 1 tab PO DAILY 02/26/20 02/26/20 Unknown lycopene 10 mg PO DAILY 02/26/20 02/26/20 Unknown omega-3 fatty acids [Fish Oil] 1,000 mg PO DAILY 02/26/20 02/26/20 Unknown omeprazole 20 mg PO DAILY 02/26/20 02/26/20 Unknown saw palmetto 0 mg PO DAILY 02/26/20 02/26/20 Unknown sildenafil 100 mg PO DAILY PRN 02/26/20 02/26/20 Unknown Active Medications Generic Name Dose Route Start Last Admin Trade Name Freq PRN Reason Stop Dose Admin Alprazolam 0.5 - 1 mg 02/27/20 02:12 02/27/20 04:19 Alprazolam 0.5 Mg Tablet PO 03/28/20 02:11 0.5 mg Q6H PRN Administration Anxiety Finasteride 5 mg 02/27/20 09:00 02/27/20 08:15 Finasteride 5 Mg Tab PO 03/28/20 08:59 5 mg DAILY [facility] Administration Lisinopril/HCTZ 1 tab 02/27/20 09:00 02/27/20 08:15 Lisinopril/Hctz 10/12.5mg Tab PO 03/28/20 08:59 1 tab DAILY [facility]LE Administration Dextrose/Sodium Chloride 1,000 mls @ 125 mls/hr 02/27/20 01:00 02/27/20 08:13 D5w And Nss IV 03/28/20 00:59 125 mls/hr .Q8H ADELE Administration Thiamine HCl 100 mg/ Syringe 10 mls @ 2 mls/min 02/27/20 09:00 02/27/20 08:15 IV 03/28/20 08:59 2 mls/min QAM [facility] Administration Folic Acid 1 mg/ Syringe 10 mls @ 5 mls/min 02/27/20 09:00 02/27/20 08:14 IV 03/28/20 08:59 5 mls/min QAM [facility] Administration Lorazepam 0.5 mg in 1 mls @ 1 mls/min 02/26/20 22:30 02/27/20 01:12 Ativan IV 03/27/20 22:29 1 mls/min Q4H PRN Administration Anxiety/Agitation Levetiracetam 1,500 mg/ Sodium 115 mls @ 440 mls/hr 02/26/20 22:30 02/27/20 08:34 Chloride IV 03/27/20 22:29 Infused BID [facility] Infusion Pantoprazole Sodium 40 mg/ 100 mls @ 20 mls/hr 02/26/20 23:00 02/27/20 09:02 Dextrose IV 03/27/20 22:59 8 mg/hr Q5H ADELE 20 mls/hr Administration 8 MG/HR NPO Date Last Intake of Fluids: 02/26/20 Time Last Intake of Fluids: 18:30 Last Intake of Fluids Comment: sips with meds Date Last Intake of Solids: 02/26/20 Time Last Intake of Solids: 16:00 Past Medical History Medical History (Updated 02/27/20 @ 09:43 by Ramon Mccarthy MD) HLD (hyperlipidemia) Exercise / Class Metabolic Activity II 4-5 Yardwork/Stairs/Walk up hill Past Anesthesia History No Hx of Anesthesia Complications and No Family Hx of Anesthesia Complications History of PONV No Hx of PONV and No Hx of Motion Sickness Social History Smoking Status: Former smoker tobacco type: cigarettes Do You Dip or Chew Tobacco: No (not currently) Hx Alcohol Use: Yes Alcohol type: beer and hard liquor alcohol intake frequency: a few times a month Hx Substance Use: No substance use type: does not use Physical Exam Vital Signs Last Vital Signs Temp 36.4 C L 02/27/20 09:36 Pulse 79 02/27/20 09:36 Resp 79 H 02/27/20 09:36 BP 122/79 02/27/20 09:36 Pulse Ox 97 02/27/20 09:36 Constitutional + obese ENMT Mouth: no dentition abnormality Thyromental Distance: > or= 3.5 Finger Breadths Mallampati Class: II Neck normal visual inspection, trachea midline and + facial hair; neck extension not limited Respiratory normal respiratory effort Auscultation: lungs clear to auscultation bilaterally Cardiovascular Rate/Rhythm: regular rate and regular rhythm Heart Sounds: no murmur Vessels: no carotid bruit Musculoskeletal Spine: normal cervical ROM Extremities: extremities normal to inspection Neurologic moves all extremities Motor/Sensory: no sensory deficit Psychiatric Orientation: alert and oriented x 3 Testing Laboratory Results 02/27/20 05:27 02/27/20 05:27 PT 10.6 Seconds (9.0-12.0) 02/26/20 19:56 INR 1.0 (0.9-1.1) 02/26/20 19:56 APTT 22.6 Seconds (21.0-31.0) 02/26/20 19:56 Blood Type A Positive 02/26/20 19:56 Antibody Screen NEGATIVE 02/26/20 19:56
[2020-02-27] MEDS ORDERED: PROPOFOL IV EMULSION 10 MG/ML 20 ML VIAL IV ONE (10:24)
[2020-02-27] MEDS ORDERED: fentaNYL citrate 100 MCG/2 ML VIAL ONE (10:24)
[2020-02-27] MEDS ORDERED: LIDOCAINE HCL 2% 2 ML VIAL/AMP(20MG/ML) INFIL ONE (10:24)
--- NOTE | 2020-02-27 10:44 | GI REPORT ---
Patient Name: Carlos aTmayo Procedure Date: 02/27/2020 10:24 AM Date of : 1960 Admit Type: Inpatient Age: 59 Gender: Male Attending MD: Angela Verma MD Procedure: Upper GI endoscopy Providers: Angela Verma MD Referring MD: Yao Perera Do, Leslee Johansen Do Indications: Melena Medicines: Propofol per Anesthesia Complications: No immediate complications. Estimated Blood Loss: Estimated blood loss: none. Procedure: Pre-Anesthesia Assessment: - Prior to the procedure, a History and Physical was performed, and patient medications, allergies and sensitivities were reviewed. The patient's tolerance of previous anesthesia was reviewed. - The risks and benefits of the procedure and the sedation options and risks were discussed with the patient. All questions were answered and informed consent was obtained. - Patient identification and proposed procedure were verified prior to the procedure by the physician and the nurse. The procedure was verified in the procedure room. - Pre-procedure physical examination revealed no contraindications to sedation. After obtaining informed consent, the endoscope was passed under direct vision. Throughout the procedure, the patient's blood pressure, pulse, and oxygen saturations were monitored continuously. The Endoscope was introduced through the mouth, and advanced to the third part of duodenum. The upper GI endoscopy was accomplished without difficulty. The patient tolerated the procedure well. Findings: The examined esophagus was normal. The entire examined stomach was normal. The duodenal bulb and second portion of the duodenum were normal. Impression: - Normal esophagus. - Normal stomach. - Normal duodenal bulb and second portion of the duodenum. - No specimens collected. Recommendation: - [facility]. - Perform a colonoscopy tomorrow. Angela Verma MD 02/27/2020 10:43:47 AM This report has been signed electronically. Note Initiated On: 02/27/2020 10:24 AM Number of Addenda: 0 I attest to the content of the Intraoperative Record and orders documented therein, exceptions below {[id number]}
--- NOTE | 2020-02-27 10:53 | Anesthesiology Progress Note ---
Date of Service February 27, 2020 Anesthesia Post Procedure Vital Signs Vital Signs: Temp Pulse Pulse Resp BP BP Pulse Ox 02/27/20 10:46 36.0 C L 74 12 126/78 96 02/27/20 09:36 36.4 C L 79 79 H 122/79 97 02/27/20 07:53 36.5 C 78 18 112/72 96 02/27/20 04:04 36.6 C 77 16 110/73 97 02/26/20 23:56 108 H 02/26/20 23:01 36.8 C 114 H 22 116/77 98 02/26/20 21:30 98 H 23 138/89 100 02/26/20 21:00 101 H 18 136/92 98 02/26/20 20:30 99 H 18 116/81 96 02/26/20 19:30 95 H 13 110/85 98 02/26/20 19:24 96 H 16 112/81 99 02/26/20 19:08 99 02/26/20 18:21 36.5 C 99 H 18 116/78 99 Transfer of Care Handoff Completed per policy Notes Mental Status: alert / awake / arousable Patient Amnestic to Procedure: Yes Nausea / Vomiting: adequately controlled Pain: adequately controlled Airway Patency, RR, SpO2: stable & adequate BP & HR: stable & adequate Hydration State: stable & adequate Anesthetic Complications: no major complications apparent
[2020-02-27] MEDS ORDERED: CALCIUM GLUCONATE 10% 1,000 MG in SODIUM CHLORIDE 0.9% 50 ML IV ONE (12:00)
[2020-02-27] MEDS ORDERED: GABAPENTIN 600 MG TAB PO SCH (12:00)
[2020-02-27] MEDS ORDERED: LAVAGE SOLUTION 4000ML PO SCH ×2 (12:30→13:30)
[2020-02-27 13:02] LABS: Hematocrit (blood only) 28.2 % (42-52); Hemoglobin 9.4 g/dL (14.0-18.0)
--- NOTE | 2020-02-27 16:29 | Hospitalist Progress Note ---
Date of Service February 27, 2020 Assessment & Plan (1) Acute GI bleeding: Recently developed lightheadedness and 3 days of melena. EGD was normal today. Patient remains hemodynamically stable today. IV fluids stopped and he is currently tolerating clear liquids. Plan to prep for colonoscopy in a.m. Protonix drip DC'd after discussion with gastroenterology. (2) Acute blood loss anemia: Patient has lost 3 g of hemoglobin in the last 24 hours secondary to bleeding. Currently hemodynamically stable and asymptomatic at this time. Continue to monitor. No need for transfusion at this time. (3) Hypertension: Currently within range. Held diuretic and continued lisinopril 10 mg per home regimen. DC IV fluids. (4) Seizure disorder: Continue intravenous version of Keppra. No seizure activity since admission. (5) DVT prophylaxis: Chemoprophylaxis contraindicated in setting of acute bleeding/SCDs/ambulation Full code Disposition-pending results of colonoscopy tomorrow. Leslee Johansen DO [facility] Hospitalist Admission and Anticipated Discharge Date Admission Date: February 26, 2020 Subjective 59 yo M presents with acute UGIB Upper endoscopy with no acute findings related to bleeding. Plan for CSP in am. Although patient is able to converse with me he is groggy likely related to the gabapentin from the alcohol withdrawal protocol. He reports that overnight he feels slightly better and describes his stool having improved from black and tarry to more normal. Some bloating and lower abdominal pain present but not severe. Able to tolerate PO as allowed. Review of Systems Review of Systems: All systems reviewed & are unremarkable except as noted in Subjective Physical Exam Physical Exam: CONSTITUTIONAL: obese, vitals as above, generally appears somnolent without acute distress. EYES: normal conjunctivae, no scleral icterus ENT: external ear and nose normal, MMM RESPIRATORY: clear to auscultation bilaterally, no crackles, rales or wheezes, normal respiratory effort CARDIOVASCULAR: regular rate and rhythm, S1 and 2 heard without murmurs, gallops or rubs, no JVD, no peripheral edema GASTROINTESTINAL: normal bowel sounds, soft, protuberant, nontender, no guarding MUSCULOSKELETAL: strength 5/5 throughout, head is normocephalic and atraumatic SKIN: warm and dry NEUROLOGIC: CN 2-12 grossly intact, drug-related hypersomnolence. PSYCHIATRIC: alert cooperative and oriented to person, place and time. Results & Data Results & Data ([facility]) Vital Signs (Past 12 Hours) Vital Signs Temp Pulse Resp BP Pulse Ox 02/27/20 15:37 36.4 C L 74 20 118/75 98 02/27/20 11:16 78 16 103/74 94 02/27/20 11:01 78 16 110/68 93 02/27/20 10:46 36.0 C L 74 12 126/78 96 02/27/20 09:36 36.4 C L 79 79 H 122/79 97 02/27/20 07:53 36.5 C 78 18 112/72 96 Laboratory Results Short CBC 02/26/20 02/27/20 02/27/20 Range/Units 18:40 05:27 05:27 WBC 6.49 5.93 (4.8-10.8) K/uL Hgb 12.3 L 9.8 L 9.8 L (14.0-18.0) g/dL Hct 35.9 L 28.7 L 28.5 L (42-52) % Plt Count 122 L 187 D (130-400) K/uL 02/27/20 Range/Units 12:40 WBC (4.8-10.8) K/uL Hgb 9.4 L (14.0-18.0) g/dL Hct 28.2 L (42-52) % Plt Count (130-400) K/uL BMP 02/26/20 02/26/20 02/27/20 18:40 19:56 05:27 Sodium 137 142 Potassium 3.9 3.9 Chloride 104 112 H Carbon Dioxide 28 30 BUN 19 H 16 Creatinine 1.10 0.90 Glucose 93 131 H Calcium 9.0 7.2 L D 02/27/20 05:27 Sodium Cancelled Potassium Cancelled Chloride Cancelled Carbon Dioxide Cancelled BUN Cancelled Creatinine Cancelled Glucose Cancelled Calcium Cancelled Cardiac Enzymes 02/26/20 02/27/20 02/27/20 Range/Units 18:40 05:27 12:40 Troponin I < 0.015 < 0.015 < 0.015 (0-0.045) ng/ml Liver Function 02/26/20 02/26/20 Range/Units 18:40 19:56 Total Bilirubin 0.4 (0.2-1) mg/dl AST 20 (15-37) U/L ALT 39 (12-78) U/L Alkaline Phosphatase 63 (45-117) U/L Albumin 3.9 (3.4-5.0) gm/dl Medications Administered Current Inpatient Medications Acetaminophen (Acetaminophen 325 Mg Tab) 650 mg PO Q4H PRN PRN Reason: Pain or Fever Stop: 03/27/20 22:29 Atorvastatin Calcium (Atorvastatin 40 Mg Tab) 80 mg PO QPM [facility] Stop: 03/28/20 20:59 Atropine Sulfate (Atropine Sulfate 0.1 Mg/Ml 10ml Syr) 0.5 mg IV Q1M PRN PRN Reason: PACU Use-HR<40 &/or Bradycardi Stop: 02/27/20 17:46 Ephedrine Sulfate (Ephedrine Sulfate 50 Mg/Ml Amp) 5 mg IV Q5M PRN PRN Reason: PACU Use Only-SBP<90 mmHg Stop: 02/27/20 17:46 Finasteride (Finasteride 5 Mg Tab) 5 mg PO DAILY [facility] Stop: 03/28/20 08:59 Last Admin: 02/27/20 08:15 Dose: 5 mg Documented by: Folic Acid (Folic Acid 1 Mg Tab) 1 mg PO QAM [facility] Stop: 03/29/20 08:59 Thiamine HCl 100 mg/ Syringe 10 mls @ 2 mls/min IV QAM [facility] Stop: 03/28/20 08:59 Last Admin: 02/27/20 08:15 Dose: 2 mls/min Documented by: Lorazepam (Ativan) 0.5 mg in 1 mls @ 1 mls/min IV Q4H PRN PRN Reason: Anxiety/Agitation Stop: 03/27/20 22:29 Last Admin: 02/27/20 01:12 Dose: 1 mls/min Documented by: Levetiracetam 1,500 mg/ Sodium (Chloride) 115 mls @ 440 mls/hr IV BID [facility] Stop: 03/27/20 22:29 Last Infusion: 02/27/20 08:34 Dose: Infused Documented by: Lorazepam (Ativan) 1 mg in 2 mls @ 2 mls/min IV UD PRN; Protocol PRN Reason: EtOH Withdrawl AWSS Score 6,7 Stop: 03/28/20 05:34 Lorazepam (Ativan) 2 mg in 4 mls @ 4 mls/min IV UD PRN; Protocol PRN Reason: EtOH Withdrawl AWSS Score 8,9 Stop: 03/28/20 05:34 Lorazepam (Ativan) 3 mg in 6 mls @ 4 mls/min IV ONCE PRN; Protocol PRN Reason: EtOH Withdrawl AWSS Score >=10 Stop: 03/28/20 05:34 Lisinopril (Lisinopril 10 Mg Tab) 10 mg PO QAM [facility] Stop: 03/29/20 08:59 Nitroglycerin (Nitroglycerin Sl 0.4 Mg/Tab Tab) 0.4 mg SL UD PRN PRN Reason: Chest Pain Stop: 03/27/20 22:29 Ondansetron HCl (Ondansetron Inj 2 Mg/Ml 2 Ml Vial) 4 mg IV Q6H PRN PRN Reason: Nausea Stop: 03/27/20 22:29 Polyethylene Glycol/Electrolytes (Lavage Solution 4000ml) 16 dose PO 1330 [facility] Stop: 02/27/20 18:00 Last Admin: 02/27/20 14:09 Dose: 16 dose Documented by: Polyethylene Glycol/Electrolytes (Lavage Solution 4000ml) 16 dose PO 0330 [facility] Stop: 02/28/20 08:00
[2020-02-27 17:52] LABS: Hematocrit (blood only) 28.4 % (42-52); Hemoglobin 9.5 g/dL (14.0-18.0)
[2020-02-27] MEDS: ATORVASTATIN 40 MG TAB PO SCH (21:12)
[2020-02-28] MEDS ORDERED: GABAPENTIN 600 MG TAB PO SCH (02:00)
[2020-02-28] MEDS ORDERED: LAVAGE SOLUTION 4000ML PO SCH (03:30)
--- NOTE | 2020-02-28 05:51 | Electrocardiogram Report ---
Test Reason : Blood Pressure : / mmHG Vent. Rate : 097 BPM Atrial Rate : 097 BPM P-R Int : 164 ms QRS Dur : 088 ms QT Int : 354 ms P-R-T Axes : 031 -37 008 degrees QTc Int : 449 ms Normal sinus rhythm Left axis deviation T wave abnormality, consider anterior ischemia Abnormal ECG When compared with ECG of 19-JAN-2015 17:50, T wave inversion now evident in Anterior leads Confirmed by Ra Azul ([id number]) on 02/28/2020 5:50:50 AM Referred By: Yao Perera Confirmed By:Ra Azul
--- NOTE | 2020-02-28 05:57 | Electrocardiogram Report ---
Test Reason : Blood Pressure : / mmHG Vent. Rate : 075 BPM Atrial Rate : 075 BPM P-R Int : 172 ms QRS Dur : 096 ms QT Int : 420 ms P-R-T Axes : 037 -20 004 degrees QTc Int : 469 ms Normal sinus rhythm Abnormal ECG When compared with ECG of 26-FEB-2020 18:53, Inverted T waves have replaced nonspecific T wave abnormality in Anterolateral leads Confirmed by Ra Azul ([id number]) on 02/28/2020 5:57:05 AM Referred By: Yao Perera Confirmed By:Ra Azul
[2020-02-28 06:55] LABS: Hematocrit (blood only) 33.3 % (42-52); Mean Corpuscular Hemoglobin 32.2 pg (25-34); Mean Corpuscular Volume 97.4 fL (80-100); Mean Platelet Volume 9.2 fL (7.4-10.4); Platelet Count 235 K/uL (130-400); RDW Coefficient of Variation 13.4 % (11.5-14.5); RDW Standard Deviation 47.5 fL (36.4-46.3); Red Blood Count 3.42 M/uL (4.7-6.1); White Blood Count 6.13 K/uL (4.8-10.8)
[2020-02-28 07:46] LABS: Albumin Level 3.4 gm/dl (3.4-5.0); BUN Creatinine Ratio 7.8 (10-20); Creatinine Clr Calc Pharmacy 86.7 ml/min; Est GFR (African American) 92.2; Est GFR (Non-African American) 79.5; Magnesium 2.3 mg/dl (1.8-2.4); Potassium 3.7 mmol/L (3.5-5.1)
--- NOTE | 2020-02-28 09:21 | History & Physical Bridge Note ---
Date of Service February 28, 2020 History & Physical Bridge Note I have examined the patient, reviewed the History & Physical and in the interval since the performance of the History & Physical I have noted the following changes of clinical significance: no changes noted
--- NOTE | 2020-02-28 09:24 | Anesthesiology Consultation ---
Date of Service February 28, 2020 Covid 19 negative on 02/26/20. Assessment & Plan (1) Encounter for pre-operative examination: Chart Review Chart Review: Acceptable Risk for Surgery and Patient NOT seen in Pre Admission Testing Consults Requested none History Surgery Operation Date: 02/27/20 18:00 Proposed Procedures p Esophagogastroduodenoscopy Dr Bayron Verma MD Operation Date: 02/28/20 15:30 Proposed Procedures p Colonoscopy Dr Bayron Verma MD Height/Weight Height: 5 ft 7 in Weight: 99.9 kg Allergies Allergy/AdvReac Type Severity Reaction Status Date / Time No Known Allergies Allergy Unknown Verified 02/26/20 21:41 Medications Home Medications Medication Instructions Recorded Confirmed Last Taken alprazolam 0.5 - 1 mg PO Q6H PRN 02/26/20 02/26/20 Unknown aspirin [Aspir-Low] 162 mg PO DAILY 02/26/20 02/26/20 Unknown atorvastatin 80 mg PO QPM 02/26/20 02/26/20 Unknown cranberry extract 0 mg PO DAILY 02/26/20 02/26/20 Unknown cyclobenzaprine 10 mg PO HS PRN 02/26/20 02/26/20 Unknown finasteride 5 mg PO DAILY 02/26/20 02/26/20 Unknown flaxseed oil 0 mg PO DAILY 02/26/20 02/26/20 Unknown levetiracetam 1,500 mg PO BID 02/26/20 02/26/20 Unknown lisinopril-hydrochlorothiazide 1 tab PO DAILY 02/26/20 02/26/20 Unknown lycopene 10 mg PO DAILY 02/26/20 02/26/20 Unknown omega-3 fatty acids [Fish Oil] 1,000 mg PO DAILY 02/26/20 02/26/20 Unknown omeprazole 20 mg PO DAILY 02/26/20 02/26/20 Unknown saw palmetto 0 mg PO DAILY 02/26/20 02/26/20 Unknown sildenafil 100 mg PO DAILY PRN 02/26/20 02/26/20 Unknown Active Medications Generic Name Dose Route Start Last Admin Trade Name Freq PRN Reason Stop Dose Admin Atorvastatin Calcium 80 mg 02/27/20 21:00 02/27/20 21:12 Atorvastatin 40 Mg Tab PO 03/28/20 20:59 80 mg QPM [facility] Administration Finasteride 5 mg 02/27/20 09:00 02/27/20 08:15 Finasteride 5 Mg Tab PO 03/28/20 08:59 5 mg DAILY [facility] Administration Thiamine HCl 100 mg/ Syringe 10 mls @ 2 mls/min 02/27/20 09:00 02/27/20 08:15 IV 03/28/20 08:59 2 mls/min QAM [facility] Administration Lorazepam 0.5 mg in 1 mls @ 1 mls/min 02/26/20 22:30 02/27/20 01:12 Ativan IV 03/27/20 22:29 1 mls/min Q4H PRN Administration Anxiety/Agitation Levetiracetam 1,500 mg/ Sodium 115 mls @ 440 mls/hr 02/26/20 22:30 02/27/20 21:38 Chloride IV 03/27/20 22:29 Infused BID [facility] Infusion NPO Date Last Intake of Fluids: 02/28/20 Time Last Intake of Fluids: 07:00 Last Intake of Fluids Comment: sips with meds Date Last Intake of Solids: 02/26/20 Time Last Intake of Solids: 15:00 Past Medical History Medical History Acute blood loss anemia Diverticulosis HLD (hyperlipidemia) Hypertension Seizure disorder Social History Smoking Status: Former smoker tobacco type: cigarettes Do You Dip or Chew Tobacco: No (not currently) Hx Alcohol Use: Yes Alcohol type: beer and hard liquor alcohol intake frequency: a few times a month Hx Substance Use: No substance use type: does not use Physical Exam Vital Signs Last Vital Signs Temp 36.9 C 02/28/20 09:16 Pulse 78 02/28/20 09:16 Resp 18 02/28/20 09:16 BP 143/89 H 02/28/20 09:16 Pulse Ox 99 02/28/20 09:16 Testing Laboratory Results 02/28/20 06:44 02/28/20 06:45 PT 10.6 Seconds (9.0-12.0) 02/26/20 19:56 INR 1.0 (0.9-1.1) 02/26/20 19:56 APTT 22.6 Seconds (21.0-31.0) 02/26/20 19:56 Blood Type A Positive 02/26/20 19:56 Antibody Screen NEGATIVE 02/26/20 19:56
[2020-02-28] MEDS ORDERED: PROPOFOL IV EMULSION 10 MG/ML 20 ML VIAL IV ONE (10:02)
[2020-02-28] MEDS ORDERED: LIDOCAINE HCL 2% 2 ML VIAL/AMP(20MG/ML) INFIL ONE (10:02)
--- NOTE | 2020-02-28 10:07 | GI REPORT ---
Patient Name: Carlos Tamayo Procedure Date: 02/28/2020 9:18 AM Date of : 1960 Admit Type: Inpatient Age: 59 Gender: Male Attending MD: Angela Verma MD Procedure: Colonoscopy Providers: Angela Verma MD Referring MD: Yao Perera Do Indications: Rectal bleeding Medicines: Propofol per Anesthesia Complications: No immediate complications. Estimated Blood Loss: Estimated blood loss: none. Procedure: Pre-Anesthesia Assessment: - Prior to the procedure, a History and Physical was performed, and patient medications, allergies and sensitivities were reviewed. The patient's tolerance of previous anesthesia was reviewed. - The risks and benefits of the procedure and the sedation options and risks were discussed with the patient. All questions were answered and informed consent was obtained. - Patient identification and proposed procedure were verified prior to the procedure by the physician and the nurse. The procedure was verified in the procedure room. - Pre-procedure physical examination revealed no contraindications to sedation. After I obtained informed consent, the scope was passed under direct vision. Throughout the procedure, the patient's blood pressure, pulse, and oxygen saturations were monitored continuously. The Scope was introduced through the anus and advanced to the terminal ileum. The colonoscopy was performed without difficulty. The patient tolerated the procedure well. The quality of the bowel preparation was good. The terminal ileum, ileocecal valve, appendiceal orifice, and rectum were photographed. Findings: The perianal and digital rectal examinations were normal. The terminal ileum appeared normal. Scattered large-mouthed diverticula were found in the entire colon. Non-bleeding internal hemorrhoids were found during retroflexion. The hemorrhoids were medium-sized. Impression: - Scattered specks of blood in the terminal ileum and the entire colon but no evidence of overt ongoing GI bleeding. DDx: Diverticular source Vs Small bowel. - The examined portion of the ileum was normal. - Diverticulosis in the entire examined colon. - Non-bleeding internal hemorrhoids. - No specimens collected. Recommendation: - [facility] to [facility] care. - Full liquid diet today. - Monitor H/H, if continues to drop or has recurrent bleeding then please obtain a bleeding scan. - If no more bleeding then advance diet and plan for VCE as OP. Angela Verma MD 02/28/2020 10:07:30 AM This report has been signed electronically. Note Initiated On: 02/28/2020 9:18 AM Number of Addenda: 0 I attest to the content of the Intraoperative Record and orders documented therein, exceptions below {[id number]}
--- NOTE | 2020-02-28 10:31 | Anesthesiology Progress Note ---
Date of Service February 28, 2020 Anesthesia Post Procedure Vital Signs Vital Signs: Temp Pulse Pulse Resp BP Pulse Ox 02/28/20 10:27 77 16 100/60 98 02/28/20 10:06 84 16 107/69 99 02/28/20 09:16 36.9 C 78 18 143/89 H 99 02/28/20 07:57 36.4 C L 87 18 123/83 97 02/28/20 04:33 36.5 C 83 18 115/78 97 02/27/20 23:50 36.4 C L 82 16 122/76 98 02/27/20 19:00 36.4 C L 88 20 114/77 95 02/27/20 15:37 36.4 C L 74 20 118/75 98 02/27/20 11:16 78 16 103/74 94 02/27/20 11:01 78 16 110/68 93 02/27/20 10:46 36.0 C L 74 12 126/78 96 Pain Intensity Abdomen: Pain Intensity: 3 Transfer of Care Handoff Completed per policy Notes Mental Status: alert / awake / arousable Patient Amnestic to Procedure: Yes Nausea / Vomiting: adequately controlled Pain: adequately controlled Airway Patency, RR, SpO2: stable & adequate BP & HR: stable & adequate Hydration State: stable & adequate Anesthetic Complications: no major complications apparent and Pt Satisfied with anesthetic care
[2020-02-28] MEDS: ACETAMINOPHEN 325 MG TAB PO PRN ×2 (11:13→23:30)
[2020-02-28] MEDS: FINASTERIDE 5 MG TAB PO SCH (11:46)
[2020-02-28] MEDS: lisinopril 10 MG TAB PO SCH (11:46)
[2020-02-28] MEDS: PANTOprazole 40 MG TAB PO SCH (11:46)
[2020-02-28] MEDS: FOLIC ACID 1 MG TAB PO SCH (11:46)
[2020-02-28] MEDS: levETIRAcetam 1,500 MG in 0.9 % SODIUM CHLORIDE 100 ML IV SCH (11:47)
[2020-02-28] MEDS: THIAMINE HCL 100 MG in SYRINGE 9 ML IV SCH (11:47)
[2020-02-28] MEDS: SODIUM CHLORIDE 0.9% 1000ML 1,000 ML IV SCH ×2 (14:20→16:15)
--- NOTE | 2020-02-28 15:39 | Hospitalist Progress Note ---
Date of Service February 28, 2020 Assessment & Plan (1) Acute GI bleeding: Lightheadedness is improved but persists. Will restart IV fluids x2 bags now. H&H has improved but he still anemic. EGD normal on 02/26. C scope with findings as above. Continue to trend H&H this evening and tomorrow morning and monitor persistent GI bleeding. If he continues to bleed in order H&H continues to drop, we will plan to transfuse as needed, obtain a bleeding scan and if no more bleeding then will advance diet and plan for VCE as outpatient per gastroenterology recommendations. Continue daily Protonix per home regimen. (2) Acute blood loss anemia: Improved but some symptoms still persist. Continue to monitor. No need for transfusion at this time. (3) Hypertension: Currently within range. Held diuretic and continued lisinopril 10 mg per home regimen. (4) Seizure disorder: Continue Keppra, switch to p.o. today. No seizure activity since admission. (5) DVT prophylaxis: Chemoprophylaxis contraindicated in setting of acute bleeding/SCDs/ambulation Full code Disposition-continue monitoring in PCU with ongoing active GI bleeding. May have possible small bowel source. Leslee Johansen DO [facility] Hospitalist Admission and Anticipated Discharge Date Admission Date: February 26, 2020 Subjective cc: 59-year-old man presents with acute melena Persistent GI bleeding overnight despite colonoscopy prepping. CSP reveals flecks of blood throughout the terminal ileum and in the entire colon without evidence of overt ongoing GI bleeding. Differential includes but not limited to a diverticular source versus small bowel. Diverticulosis was present in the entire examined colon with nonbleeding internal hemorrhoids present. He is concerned because although his lightheadedness has improved he still does not feel back to baseline. Denies significant abdominal pain. He is tolerating p.o. Review of Systems Review of Systems: All systems reviewed & are unremarkable except as noted in Subjective Physical Exam Physical Exam: CONSTITUTIONAL: obese, vitals as above, NAD EYES: normal conjunctivae, no scleral icterus ENT: external ear and nose normal, MMM RESPIRATORY: clear to auscultation bilaterally, no crackles, rales or wheezes, normal respiratory effort CARDIOVASCULAR: regular rate and rhythm, S1 and 2 heard without murmurs, gallops or rubs, no JVD, no peripheral edema GASTROINTESTINAL: normal bowel sounds, soft, protuberant, nontender, no guarding MUSCULOSKELETAL: strength 5/5 throughout, head is normocephalic and atraumatic SKIN: warm and dry NEUROLOGIC: CN 2-12 grossly intact, no gross focal deficits. PSYCHIATRIC: alert cooperative and oriented to person, place and time. Results & Data Results & Data ([facility]) Vital Signs (Past 12 Hours) Vital Signs Temp Pulse Pulse Resp BP Pulse Ox 02/28/20 11:46 37 C 75 18 123/82 97 02/28/20 10:50 72 16 136/84 99 02/28/20 10:37 77 16 105/72 99 02/28/20 10:21 77 16 100/60 98 02/28/20 10:06 84 16 107/69 99 02/28/20 09:16 36.9 C 78 18 143/89 H 99 02/28/20 07:57 36.4 C L 87 18 123/83 97 02/28/20 04:33 36.5 C 83 18 115/78 97 Laboratory Results Short CBC 02/27/20 02/28/20 Range/Units 17:08 06:44 WBC 6.13 (4.8-10.8) K/uL Hgb 9.5 L 11.0 L (14.0-18.0) g/dL Hct 28.4 L 33.3 L (42-52) % Plt Count 235 (130-400) K/uL BMP 02/28/20 06:45 Sodium 140 Potassium 3.7 Chloride 109 H Carbon Dioxide 27 BUN 8 D Creatinine 1.02 Glucose 119 H Calcium 9.0 D Liver Function 02/28/20 Range/Units 06:45 Albumin 3.4 (3.4-5.0) gm/dl Medications Administered Current Inpatient Medications Acetaminophen (Acetaminophen 325 Mg Tab) 650 mg PO Q4H PRN PRN Reason: Pain or Fever Stop: 03/27/20 22:29 Last Admin: 02/28/20 11:13 Dose: 650 mg Documented by: Atorvastatin Calcium (Atorvastatin 40 Mg Tab) 80 mg PO QPM [facility] Stop: 03/28/20 20:59 Last Admin: 02/27/20 21:12 Dose: 80 mg Documented by: Finasteride (Finasteride 5 Mg Tab) 5 mg PO DAILY [facility] Stop: 03/28/20 08:59 Last Admin: 02/28/20 11:46 Dose: 5 mg Documented by: Folic Acid (Folic Acid 1 Mg Tab) [facility] [place]: 03/29/20 08:59 Last Admin: 02/28/20 11:46 Dose: 1 mg Documented by: Thiamine HCl 100 mg/ Syringe 10 mls @ 2 mls/min IV QAM [facility] Stop: 03/28/20 08:59 Last Admin: 02/28/20 11:47 Dose: 2 mls/min Documented by: Lorazepam (Ativan) 0.5 mg in 1 mls @ 1 mls/min IV Q4H PRN PRN Reason: Anxiety/Agitation Stop: 03/27/20 22:29 Last Admin: 02/27/20 01:12 Dose: 1 mls/min Documented by: Lorazepam (Ativan) 1 mg in 2 mls @ 2 mls/min IV UD PRN; Protocol PRN Reason: EtOH Withdrawl AWSS Score 6,7 Stop: 03/28/20 05:34 Lorazepam (Ativan) 2 mg in 4 mls @ 4 mls/min IV UD PRN; Protocol PRN Reason: EtOH Withdrawl AWSS Score 8,9 Stop: 03/28/20 05:34 Lorazepam (Ativan) 3 mg in 6 mls @ 4 mls/min IV ONCE PRN; Protocol PRN Reason: EtOH Withdrawl AWSS Score >=10 Stop: 03/28/20 05:34 Sodium Chloride (Nss 1000ml) 1,000 mls @ 125 mls/hr IV .Q8H [facility] Stop: 02/29/20 05:44 Levetiracetam (Levetiracetam 500 Mg Tab) 1,500 mg PO BID [facility] Stop: 03/29/20 20:59 Lisinopril (Lisinopril 10 Mg Tab) 10 [facility] [place]: 03/29/20 08:59 Last Admin: 02/28/20 11:46 Dose: 10 mg Documented by: Nitroglycerin (Nitroglycerin Sl 0.4 Mg/Tab Tab) 0.4 mg SL UD PRN PRN Reason: Chest Pain Stop: 03/27/20 22:29 Ondansetron HCl (Ondansetron Inj 2 Mg/Ml 2 Ml Vial) 4 mg IV Q6H PRN PRN Reason: Nausea Stop: 03/27/20 22:29 Pantoprazole Sodium (Pantoprazole 40 Mg Tab) 40 [facility] [place]: 03/29/20 08:59 Last Admin: 02/28/20 11:46 Dose: 40 mg Documented by:
[2020-02-28 17:44] LABS: Hematocrit (blood only) 27.2 % (42-52); Hemoglobin 9.1 g/dL (14.0-18.0)
[2020-02-28] MEDS: levETIRAcetam 500 MG TAB PO SCH (20:22)
[2020-02-28] MEDS: ATORVASTATIN 40 MG TAB PO SCH (20:22)
[2020-02-29] MEDS: SODIUM CHLORIDE 0.9% 1000ML 1,000 ML IV SCH (00:33)
[2020-02-29] MEDS: LORazepam 0.5 MG/1 ML VIAL IV PRN (02:26)
[2020-02-29] MEDS ORDERED: GABAPENTIN 600 MG TAB PO SCH (06:00)
[2020-02-29 06:09] LABS: Hematocrit (blood only) 23.2 % (42-52); Hemoglobin 7.9 g/dL (14.0-18.0); Mean Corpuscular Hemoglobin 32.5 pg (25-34); Mean Corpuscular Hgb Conc 34.1 g/dL (32-36); Mean Corpuscular Volume 95.5 fL (80-100); Mean Platelet Volume 9.1 fL (7.4-10.4); Platelet Count 199 K/uL (130-400); RDW Coefficient of Variation 13.4 % (11.5-14.5); RDW Standard Deviation 46.5 fL (36.4-46.3); Red Blood Count 2.43 M/uL (4.7-6.1)
[2020-02-29 07:05] LABS: BUN Creatinine Ratio 7.5 (10-20); Calcium 7.7 mg/dl (8.5-10.1); Creatinine Clr Calc Pharmacy 96.5 ml/min; Est GFR (African American) 108.2; Est GFR (Non-African American) 93.4; Magnesium 2.3 mg/dl (1.8-2.4); Potassium 3.7 mmol/L (3.5-5.1)
[2020-02-29] MEDS: THIAMINE HCL 100 MG in SYRINGE 9 ML IV SCH (08:03)
[2020-02-29] MEDS: lisinopril 10 MG TAB PO SCH (08:03)
[2020-02-29] MEDS: PANTOprazole 40 MG TAB PO SCH (08:04)
[2020-02-29] MEDS: FINASTERIDE 5 MG TAB PO SCH (08:04)
[2020-02-29] MEDS: FOLIC ACID 1 MG TAB PO SCH (08:05)
[2020-02-29] MEDS: levETIRAcetam 500 MG TAB PO SCH ×2 (08:05→20:04)
--- NOTE | 2020-02-29 11:09 | Hospitalist Progress Note ---
Date of Service February 29, 2020 Assessment & Plan (1) Acute GI bleeding: Denies symptoms of anemia today. Orthostatic vitals signs are negative. Denies abdominal pain. No BM since CSP yesterday. IVF given overnight. Hb 7.9 this am. Discussed case wtih GI-hold on tagged RBC scan unless bloody BMs continue and then pursue with possible transfer to [facility] for IR embolization. Support with transfusion as needed. Trend H/H this evening. VCE as outpatient per gastroenterology recommendations. Continue daily Protonix per home regimen. (2) Acute blood loss anemia: Declined transfusion this morning, and wanted to wait until the nuclear scan. However GI doesn't recommend that unless persistent hematochezia. Patient is clinically improved overall. H/H trend this evening. (3) Hypertension: Slightly elevated this am, however, patient was anxious and requesting to speak with physician early about the plan. Held diuretic and continued lisinopril 10 mg per home regimen. (4) Seizure disorder: Continue Keppra per home regimen. No seizure activity since admission. (5) DVT prophylaxis: Chemoprophylaxis contraindicated in setting of acute bleeding/SCDs/ambulation Full code Disposition-continue monitoring in PCU with ongoing active GI bleeding. May have possible small bowel source. I contacted his daughter at his request and discussed the findings and plan with her by phone. Leslee Johansen DO [facility] Hospitalist Admission and Anticipated Discharge Date Admission Date: February 26, 2020 Subjective cc: acute GI bleeding The patient denies any lightheadedness, weakness, or GI bleeding overnight He denies any stools overnight He is asking for a more solid diet. He is very concerned that if he doens't eat he won't have a BM Hb 7.8 this am-he did receive some IVF overnight Review of Systems Review of Systems: All systems reviewed & are unremarkable except as noted in Subjective Physical Exam Physical Exam: CONSTITUTIONAL: obese, vitals as above, NAD EYES: normal conjunctivae, no scleral icterus ENT: external ear and nose normal, MMM RESPIRATORY: clear to auscultation bilaterally, no crackles, rales or wheezes, normal respiratory effort CARDIOVASCULAR: regular rate and rhythm, S1 and 2 heard without murmurs, gallops or rubs, no JVD, no peripheral edema GASTROINTESTINAL: normal bowel sounds, soft, protuberant, nontender, no guarding MUSCULOSKELETAL: strength 5/5 throughout, head is normocephalic and atraumatic SKIN: warm and dry NEUROLOGIC: CN 2-12 grossly intact, no gross focal deficits. PSYCHIATRIC: alert cooperative and oriented to person, place and time. Results & Data Results & Data ([facility]) Vital Signs (Past 12 Hours) Vital Signs Temp Pulse Pulse Resp BP Pulse Ox 02/29/20 08:00 82 02/29/20 07:41 36.5 C 85 18 155/93 H 98 02/29/20 03:46 36.7 C 70 18 111/72 97 02/29/20 00:00 79 02/28/20 23:42 36.6 C 79 18 119/80 98 Laboratory Results Short CBC 02/28/20 02/29/20 Range/Units 17:32 05:50 WBC 4.70 L (4.8-10.8) K/uL Hgb 9.1 L 7.9 L (14.0-18.0) g/dL Hct 27.2 L 23.2 L (42-52) % Plt Count 199 (130-400) K/uL BMP 02/29/20 05:50 Sodium 143 Potassium 3.7 Chloride 111 H Carbon Dioxide 29 BUN 7 Creatinine 0.88 Glucose 106 H Calcium 7.7 L Medications Administered Current Inpatient Medications Acetaminophen (Acetaminophen 325 Mg Tab) 650 mg PO Q4H PRN PRN Reason: Pain or Fever Stop: 03/27/20 22:29 Last Admin: 02/28/20 23:30 Dose: 650 mg Documented by: Atorvastatin Calcium (Atorvastatin 40 Mg Tab) 80 mg PO QPM [facility] Stop: 03/28/20 20:59 Last Admin: 02/28/20 20:22 Dose: 80 mg Documented by: Finasteride (Finasteride 5 Mg Tab) 5 mg PO DAILY [facility] Stop: 03/28/20 08:59 Last Admin: 02/29/20 08:04 Dose: 5 mg Documented by: Folic Acid (Folic Acid 1 Mg Tab) 1 mg PO QAM [facility] Stop: 03/29/20 08:59 Last Admin: 02/29/20 08:05 Dose: 1 mg Documented by: Thiamine HCl 100 mg/ Syringe 10 mls @ 2 mls/min IV QAM [facility] Stop: 03/28/20 08:59 Last Admin: 02/29/20 08:03 Dose: 2 mls/min Documented by: Lorazepam (Ativan) 0.5 mg in 1 mls @ 1 mls/min IV Q4H PRN PRN Reason: Anxiety/Agitation Stop: 03/27/20 22:29 Last Admin: 02/29/20 02:26 Dose: 1 mls/min Documented by: Lorazepam (Ativan) 1 mg in 2 mls @ 2 mls/min IV UD PRN; Protocol PRN Reason: EtOH Withdrawl AWSS Score 6,7 Stop: 03/28/20 05:34 Lorazepam (Ativan) 2 mg in 4 mls @ 4 mls/min IV UD PRN; Protocol PRN Reason: EtOH Withdrawl AWSS Score 8,9 Stop: 03/28/20 05:34 Lorazepam (Ativan) 3 mg in 6 mls @ 4 mls/min IV ONCE PRN; Protocol PRN Reason: EtOH Withdrawl AWSS Score >=10 Stop: 03/28/20 05:34 Levetiracetam (Levetiracetam 500 Mg Tab) 1,500 mg PO BID [facility] Stop: 03/29/20 20:59 Last Admin: 02/29/20 08:05 Dose: 1,500 mg Documented by: Lisinopril (L[facility] 10 Mg Tab) [facility] [place]: 03/29/20 08:59 Last Admin: 02/29/20 08:03 Dose: 10 mg Documented by: Nitroglycerin (Nitroglycerin Sl 0.4 Mg/Tab Tab) 0.4 mg SL UD PRN PRN Reason: Chest Pain Stop: 03/27/20 22:29 Ondansetron HCl (Ondansetron Inj 2 Mg/Ml 2 Ml Vial) 4 mg IV Q6H PRN PRN Reason: Nausea Stop: 03/27/20 22:29 Pantoprazole Sodium (Pantoprazole 40 Mg Tab) [facility] [place]: 03/29/20 08:59 Last Admin: 02/29/20 08:04 Dose: 40 mg Documented by:
[2020-02-29 15:57] LABS: Hematocrit (blood only) 25.6 % (42-52); Hemoglobin 8.7 g/dL (14.0-18.0); Mean Corpuscular Hemoglobin 32.6 pg (25-34); Mean Corpuscular Volume 95.9 fL (80-100); Mean Platelet Volume 8.6 fL (7.4-10.4); Platelet Count 205 K/uL (130-400); RDW Coefficient of Variation 13.2 % (11.5-14.5); Red Blood Count 2.67 M/uL (4.7-6.1); White Blood Count 4.58 K/uL (4.8-10.8)
[2020-02-29] MEDS ORDERED: ALPRAZolam 0.5 MG TABLET PO STA (19:53)
[2020-02-29] MEDS: ATORVASTATIN 40 MG TAB PO SCH (20:04)
[2020-03-01] MEDS: levETIRAcetam 500 MG TAB PO SCH ×2 (08:02→20:11)
[2020-03-01] MEDS: FOLIC ACID 1 MG TAB PO SCH (08:02)
[2020-03-01] MEDS: FINASTERIDE 5 MG TAB PO SCH (08:03)
[2020-03-01] MEDS: lisinopril 10 MG TAB PO SCH (08:04)
[2020-03-01] MEDS: PANTOprazole 40 MG TAB PO SCH (08:05)
[2020-03-01 08:25] LABS: Hematocrit (blood only) 25.8 % (42-52); Hemoglobin 8.6 g/dL (14.0-18.0); Mean Corpuscular Hemoglobin 31.7 pg (25-34); Mean Corpuscular Hgb Conc 33.3 g/dL (32-36); Mean Corpuscular Volume 95.2 fL (80-100); Mean Platelet Volume 8.3 fL (7.4-10.4); Platelet Count 202 K/uL (130-400); RDW Coefficient of Variation 13.3 % (11.5-14.5); RDW Standard Deviation 45.6 fL (36.4-46.3); Red Blood Count 2.71 M/uL (4.7-6.1); White Blood Count 5.19 K/uL (4.8-10.8)
[2020-03-01] MEDS: THIAMINE HCL 100 MG in SYRINGE 9 ML IV SCH (08:37)
[2020-03-01 14:40] LABS: Hematocrit (blood only) 25.7 % (42-52); Hemoglobin 8.7 g/dL (14.0-18.0)
--- NOTE | 2020-03-01 15:46 | Discharge Summary ---
Date of Service March 01, 2020 Admission HPI Per Admitting Provider HISTORY OF PRESENT ILLNESS: This is a 59-year-old male with past medical history significant for dyslipidemia nontoxic uninodular goiter, hypertension, GERD, BPH, seizure disorder, panic disorder, who lives at home with his . Comes here because he went to PCP because of lightheadedness and also black stools and was advised to come to the ER. 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 Last 2-3 days, he is having black stools. It is not improving and also last couple of days, when he took his dog to walk, he felt mildly short of breath and today he was feeling lightheaded, which prompted him to go to the PCP and his hemoccult was positive and he was advised to come to the ER and in the ER also his Hemoccult was positive. His hemoglobin is 12.3, his hemoglobin was 15.9 in March 2019. The patient was slightly tachycardic when he came in. Currently resting comfortably and hemodynamically stable. The patient says he had some chest discomfort a couple of days ago, but that resolved. Has cough, but he attributes this to his sinuses, postnasal drip. Denies any headache. Once in a while he gets straight lines in his vision and he saw the eye doctor and it was thought to be from migraines. No earache. Currently, no runny nose, no sore throat, no difficulty swallowing. Appetite is okay. No nausea, no vomiting. Mild abdominal discomfort and bloating. Normal bladder movements. Currently, no rash. No recent weight gain or weight loss. Admission Exam Per Admitting Provider PHYSICAL EXAMINATION: GENERAL: The patient is of moderate build, not in acute distress. VITAL SIGNS: Temperature 36.5, pulse 99, respiratory rate 18, blood pressure 116/81, oxygen 96% on room air. HEENT: No pallor. Pupils equal, round, and reactive to light. Oral mucosa moist. NECK: No neck masses seen. CARDIOVASCULAR: S1, S2 heard. Regular rate and rhythm. No murmur, no gallop. RESPIRATORY SYSTEM: Normal AP diameter. No accessory muscle use. No wheezing, no crackles. ABDOMEN: Soft, bowel sounds present. Mild abdominal discomfort. No guarding, no rigidity, no distention. CENTRAL NERVOUS SYSTEM: Cranial nerves II-XII are grossly intact. Nonfocal. EXTREMITIES: Mild pedal edema present, no erythema seen. Principal Diagnosis Acute GI bleeding Acute blood loss anemia Discharge Exam CONSTITUTIONAL: obese,NAD EYES: normal conjunctivae, no scleral icterus ENT: external ear and nose normal, MMM RESPIRATORY: clear to auscultation bilaterally, no crackles, rales or wheezes, normal respiratory effort CARDIOVASCULAR: regular rate and rhythm, S1 and 2 heard without murmurs, gallops or rubs, no JVD, no peripheral edema GASTROINTESTINAL: normal bowel sounds, soft, protuberant, nontender, no guarding MUSCULOSKELETAL: strength 5/5 throughout, head is normocephalic and atraumatic SKIN: warm and dry NEUROLOGIC: CN 2-12 grossly intact, no gross focal deficits. PSYCHIATRIC: alert cooperative and oriented to person, place and time. Discharge Data Allergies Allergy/AdvReac Type Severity Reaction Status Date / Time No Known Allergies Allergy Unknown Verified 02/26/20 21:41 Consultations 02/26/20 20:27 ED Decision to Admit Stat 02/26/20 22:30 Consult Case Management - Discharge Planning Routine 02/27/20 08:00 Consult Gastroenterology Routine Procedures Performed Operation Date: 02/27/20 18:00 Actual Procedures p Esophagogastroduodenoscopy - Angela Verma MD Operation Date: 02/28/20 15:30 Actual Procedures p Colonoscopy - Angela Verma MD Hospital Course (1) Acute GI bleeding: (2) Acute blood loss anemia: 59-year-old man with a history of diverticulosis and GI bleeding in the past presented with melena. He was placed on a Protonix drip and admitted to the hospitalist service he underwent an EGD on 02/26 revealing a normal esophagus, normal stomach, normal duodenal bulb and second portion of the duodenum with no specimens collected. The following day he underwent a colonoscopy revealing scattered specks of blood in the terminal ileum and entire colon but no evidence of overt ongoing GI bleeding. Differential diagnosis includes a diverticular source versus small bowel. The examined portion of the ileum was normal. Diverticulosis was seen in the entire examined colon. Nonbleeding internal hemorrhoids were seen and no specimens were collected. His H&H did continue to fall somewhat and this was thought secondary to dilution in addition to acute blood loss anemia. He did not require any blood transfusions during this hospitalization as he remained asymptomatic and his H&H spontaneously resolved prior to discharge. I did review the records with him from his prior admission several years ago where a similar bleeding incident occurred. At that time no bleeding was seen on the lower scope with a presumed diverticular source. As this was a similar situation and outpatient video capsule endoscopy is recommended. This will be set up with [facility] as outpatient. His lowest H&H while hospitalized was 7.9/23.2. Prior to discharge on March 02 his H&H was 9.4/27.4. At time of discharge she was hemodynamically stable and afebrile and tolerating p.o. He was mentating and ambulating at baseline and oxygenating well on room air. Close primary care follow-up was recommended to ensure your he was still doing well after discharge. Baby aspirin was stopped pending etiology of bleeding with further work-up. Total Time Total Time Spent Total Time Spent (In Minutes): 60 Total Time Includes: Examination of the Patient, Discharge Planning, Medication Reconciliation and Communication With Other Providers Discharge Plan Discharge Items Patient Disposition: Home - Self-Care Reason For Visit: GI BLEED, LIGHTHEADEDNESS Discharge Diagnosis: Acute GI bleeding Acute blood loss anemia Condition on Discharge: Good Activity: Resume your previous activity Non-emergency contact: Primary Care Provider Call non-emergency contact if: you have any medication questions, your symptoms worsen, your pain is not controlled, your pain is worsening, your pain is unusual for you, your pain is concerning for you and you have a fever Follow-up/Referrals: Yao Perera DO [Primary Care Provider] - (Date & Time 03/03/2020 11:00 AM Provider Yao Perera DO Department [facility] ) Diet: Regular Addtl Attending Provider Instructions: Please take all medications as instructed on discharge list below. You will need to follow-up with [facility] as outpatient for a video capsule endoscopy test, which will help screen for a possible source of bleeding in your small bowel. It is recommended that you follow-up with your primary care physician at the date/time above. You will need continued investigation into your bleeding and your provider may help orchestrate this care and monitor labwork as needed. Your aspirin has been held temporarily until you are having more normal bowel movements. Please work with your outpatient physicians on the appropriate time to restart this. It was a pleasure taking care of you! Please call if you have any questions or problems. You can reach a [facility] hospitalist on duty at [facility] 24 hours a day by calling [phone]. Take care of yourself. Leslee Johansen, [facility] Pending Studies at Discharge: No Stand-Alone Forms: My [facility] Medications and DC Order Prescriptions: Continued atorvastatin 80 mg tablet 80 mg PO QPM RF: 0 finasteride 5 mg tablet 5 mg PO DAILY RF: 0 omeprazole 20 mg capsule,delayed release(DR/EC) 20 mg PO DAILY RF: 0 lisinopril-hydrochlorothiazide 10-12.5 mg tablet 1 tab PO DAILY RF: 0 cyclobenzaprine 10 mg tablet 10 mg PO HS PRN (Reason: Spasms) RF: 0 levetiracetam 750 mg tablet 1,500 mg PO BID RF: 0 alprazolam 0.5 mg tablet 0.5 - 1 mg PO Q6H PRN (Reason: Anxiety) RF: 0 cranberry extract 250 mg Tablet 0 mg PO DAILY RF: 0 omega-3 fatty acids Capsule 1,000 mg PO DAILY RF: 0 flaxseed oil 1,000 mg Capsule 0 mg PO DAILY RF: 0 saw palmetto 80 mg Capsule 0 mg PO DAILY RF: 0 sildenafil 100 mg tablet 100 mg PO DAILY PRN (Reason: Erectile Dysfunction) RF: 0 lycopene 10 mg Capsule 10 mg PO DAILY RF: 0 Discontinued aspirin [Aspir-Low] 81 mg Tablet,Delayed Release (Dr/Ec) 162 mg PO DAILY RF: 0 Discharge Orders: Discharge Order (Routine); Ordered 03/02/20 Ordered By: Leslee Johansen Admission Data Admit Date/Time: 02/26/20 21:03 Attending Provider: Leslee Johansen Admit Provider: Steven Gupta Primary Care Provider: Yao Perera Other Providers: Steven Gupta ; Dagoberto Irvin Other Interventions: Discharge Summary Assessment (RN) Last Done: 03/02/20 16:03
--- NOTE | 2020-03-01 16:46 | Hospitalist Progress Note ---
Date of Service March 01, 2020 Assessment & Plan (1) Acute GI bleeding: Denies symptoms of anemia today. Denies abdominal pain. No BM since CSP until later this afternoon when he experienced a bloody BM that was mostly blood present without stool. H/H remains stable. Hemodynamics stable. Hold on tagged RBC scan unless bloody BMs continue and then pursue with possible transfer to tertiary care center for IR embolization. Support with transfusion as needed. Trend H/H in am and recall GI to see him in the morning. VCE as outpatient per gastroenterology recommendations. Continue daily Protonix per home regimen. (2) Acute blood loss anemia: Not required a blood transfusion this admission. Trend H/H with persistent active bleeding, which is currently stable. (3) Hypertension: At goal, cont holding diuretic and continued lisinopril 10 mg per home regimen. (4) Seizure disorder: Continue Keppra per home regimen. No seizure activity since admission. (5) DVT prophylaxis: Chemoprophylaxis contraindicated in setting of acute bleeding/SCDs/ambulation. Hold aspirin per home regimen. Full code Disposition-transfer to [facility]/tele and recall GI to discuss updated plan with him in am. Leslee Johansen DO [facility] Hospitalist Admission and Anticipated Discharge Date Admission Date: February 26, 2020 Subjective cc: acute GI bleeding The patient denies any lightheadedness, weakness, or GI bleeding overnight He denies any stools overnight but later this afternoon did have a bloody BM- bright red blood approx 30cc clumped in the water as described by nurse. H/H stable, no abdominal pain and no issues tolerating PO Review of Systems Review of Systems: All systems reviewed & are unremarkable except as noted in Subjective Physical Exam Physical Exam: CONSTITUTIONAL: obese, vitals as above, NAD EYES: normal conjunctivae, no scleral icterus ENT: external ear and nose normal, MMM RESPIRATORY: clear to auscultation bilaterally, no crackles, rales or wheezes, normal respiratory effort CARDIOVASCULAR: regular rate and rhythm, S1 and 2 heard without murmurs, gallops or rubs, no JVD, no peripheral edema GASTROINTESTINAL: normal bowel sounds, soft, protuberant, nontender, no guarding MUSCULOSKELETAL: strength 5/5 throughout, head is normocephalic and atraumatic SKIN: warm and dry NEUROLOGIC: CN 2-12 grossly intact, no gross focal deficits. PSYCHIATRIC: alert cooperative and oriented to person, place and time. Results & Data Results & Data ([facility]) Vital Signs (Past 12 Hours) Vital Signs Temp Pulse Pulse Pulse Resp BP BP 03/01/20 15:48 36.7 C 91 H 91 H 21 132/87 131/85 03/01/20 15:05 36.7 C 91 H 21 131/85 03/01/20 11:43 36.2 C L 91 H 20 132/87 03/01/20 08:00 88 03/01/20 07:59 36.8 C 76 20 129/83 Pulse Ox 03/01/20 15:48 99 03/01/20 15:05 99 03/01/20 11:43 99 03/01/20 08:00 03/01/20 07:59 95 Laboratory Results Short CBC 03/01/20 03/01/20 Range/Units 08:14 14:14 WBC 5.19 (4.8-10.8) K/uL Hgb 8.6 L 8.7 L (14.0-18.0) g/dL Hct 25.8 L 25.7 L (42-52) % Plt Count 202 (130-400) K/uL Medications Administered Current Inpatient Medications Acetaminophen (Acetaminophen 325 Mg Tab) 650 mg PO Q4H PRN PRN Reason: Pain or Fever Stop: 03/27/20 22:29 Last Admin: 02/28/20 23:30 Dose: 650 mg Documented by: Atorvastatin Calcium (Atorvastatin 40 Mg Tab) 80 mg PO QPM ADELE Stop: 03/28/20 20:59 Last Admin: 02/29/20 20:04 Dose: 80 mg Documented by: Finasteride (Finasteride 5 Mg Tab) 5 mg PO DAILY ADELE Stop: 03/28/20 08:59 Last Admin: 03/01/20 08:03 Dose: 5 mg Documented by: Folic Acid (Folic Acid 1 Mg Tab) 1 mg PO QAM ADELE Stop: 03/29/20 08:59 Last Admin: 03/01/20 08:02 Dose: 1 mg Documented by: Thiamine HCl 100 mg/ Syringe 10 mls @ 2 mls/min IV QAM ADELE Stop: 03/28/20 08:59 Last Admin: 03/01/20 08:37 Dose: 2 mls/min Documented by: Lorazepam (Ativan) 0.5 mg in 1 mls @ 1 mls/min IV Q4H PRN PRN Reason: Anxiety/Agitation Stop: 03/27/20 22:29 Last Admin: 02/29/20 02:26 Dose: 1 mls/min Documented by: Lorazepam (Ativan) 1 mg in 2 mls @ 2 mls/min IV UD PRN; Protocol PRN Reason: EtOH Withdrawl AWSS Score 6,7 Stop: 03/28/20 05:34 Lorazepam (Ativan) 2 mg in 4 mls @ 4 mls/min IV UD PRN; Protocol PRN Reason: EtOH Withdrawl AWSS Score 8,9 Stop: 03/28/20 05:34 Lorazepam (Ativan) 3 mg in 6 mls @ 4 mls/min IV ONCE PRN; Protocol PRN Reason: EtOH Withdrawl AWSS Score >=10 Stop: 03/28/20 05:34 Levetiracetam (Levetiracetam 500 Mg Tab) 1,500 mg PO BID [facility] Stop: 03/29/20 20:59 Last Admin: 03/01/20 08:02 Dose: 1,500 mg Documented by: Lisinopril (Lisinopril 10 Mg Tab) 10 mg PO QAM [facility] Stop: 03/29/20 08:59 Last Admin: 03/01/20 08:04 Dose: 10 mg Documented by: Nitroglycerin (Nitroglycerin Sl 0.4 Mg/Tab Tab) 0.4 mg SL UD PRN PRN Reason: Chest Pain Stop: 03/27/20 22:29 Ondansetron HCl (Ondansetron Inj 2 Mg/Ml 2 Ml Vial) 4 mg IV Q6H PRN PRN Reason: Nausea Stop: 03/27/20 22:29 Pantoprazole Sodium (Pantoprazole 40 Mg Tab) 40 mg PO QAM [facility] Stop: 03/29/20 08:59 Last Admin: 03/01/20 08:05 Dose: 40 mg Documented by:
[2020-03-01] MEDS ORDERED: GABAPENTIN 600 MG TAB PO SCH (18:00)
[2020-03-01] MEDS: ATORVASTATIN 40 MG TAB PO SCH (20:11)
[2020-03-02 07:37] LABS: Hematocrit (blood only) 27.4 % (42-52); Hemoglobin 9.4 g/dL (14.0-18.0); Mean Corpuscular Hemoglobin 32.8 pg (25-34); Mean Corpuscular Hgb Conc 34.3 g/dL (32-36); Mean Corpuscular Volume 95.5 fL (80-100); Mean Platelet Volume 9.3 fL (7.4-10.4); Platelet Count 235 K/uL (130-400); RDW Coefficient of Variation 13.3 % (11.5-14.5); RDW Standard Deviation 45.2 fL (36.4-46.3); Red Blood Count 2.87 M/uL (4.7-6.1); White Blood Count 5.41 K/uL (4.8-10.8)
[2020-03-02] MEDS: FINASTERIDE 5 MG TAB PO SCH (08:21)
[2020-03-02] MEDS: levETIRAcetam 500 MG TAB PO SCH (08:21)
[2020-03-02] MEDS: lisinopril 10 MG TAB PO SCH (08:21)
[2020-03-02] MEDS: FOLIC ACID 1 MG TAB PO SCH (08:21)
[2020-03-02] MEDS: PANTOprazole 40 MG TAB PO SCH (08:22)
[2020-03-02] MEDS: THIAMINE HCL 100 MG in SYRINGE 9 ML IV SCH (08:27)
== END 2020-03-02 16:25 | disposition home or self-care (01) | DRG 378 ==
LOC: ED 18:12 → 2S 21:03 → 2N 03-01 18:03